=== PATIENT | male | born 1950 | race Caucasian/White ===

== ENCOUNTER 2019-03-26 13:00 | Inpatient (IN) | payer OTHER, MEDICARE ==
[~2019-03-26] VITALS: Ht 162.6 cm; Wt 57.6 kg
[2019-03-26] VITALS (9 sets, daily range): BP systolic 87–132; BP diastolic 47–100
[~2019-03-26 13:00] MED LIST: METH40TA2 PO
--- NOTE | 2019-03-26 13:10 | NUR ---
BIB BROTHER C/O POOR PO INTAKE X4 DAYS, AND BLE EDEMA. PATIENT ASSISTED TO BED, CHANGED INTO GOWN, UNABLE TO OBTAIN HISTORY, BROTHER LEFT. PATIENT A/OX2, BREATHING EVEN AND UNLABORED, NO SOB NOTED. MULTIPLE WOUNDS NOTED, ON LEFT ELBOW AND MARGOTH. HEELS. KEPT PATIENT COMFORTABLE. ATTACHED TO THE PRIVATE DUTY AIDE. WAITING FOR MD NGUYEN.
[2019-03-26] MEDS ORDERED: IV NS 0.9% 1,000 ML BAG IV ONE ×2 (13:30→14:00)
[2019-03-26 13:34] LABS: HEMATOCRIT 34 % (39-51); HEMOGLOBIN 11.5 g/dL (13.5-17.5); MEAN CORPUSCULAR HGB CONC 34 g/dl (31.0-36.0); MEAN CORPUSCULAR VOLUME 80 fL (80-96); RED BLOOD CELL COUNT(AUTO) 4.29 MIL/uL (4.5-6.0); WHITE BLOOD COUNT (AUTO) 21.2 K/uL (4.3-11.0)
[2019-03-26 13:35] LABS: BASOPHILS # (AUTO) 0.1 /CMM (0.0-0.2); BASOPHILS % (AUTO) 0.4 % (0.0-2.0); EOSINOPHILS % (AUTO) 1.7 % (0.0-6.0); LYMPHOCYTES # (AUTO) 0.3 /CMM (0.8-4.8); LYMPHOCYTES % (AUTO) 1.4 % (20.0-44.0); MONOCYTES # (AUTO) 0.3 /CMM (0.1-1.30); MONOCYTES % (AUTO) 1.5 % (2.0-12.0); NEUTROPHILS # (AUTO) 20.1 /CMM (1.8-8.9); PLATELET COUNT (AUTO) 273 /CMM (150-450)
[2019-03-26 13:45] LABS: CALCIUM, SERUM 8.4 mg/dL (8.5-10.1); CARBON DIOXIDE 23 mmol/L (21-32); CHLORIDE 89 mmol/L (98-107); CREATININE 3.7 mg/dL (0.6-1.3); GLUCOSE 117 mg/dL (74-106); POTASSIUM 5.6 mmol/L (3.5-5.1); SODIUM SERUM 125 mmol/L (136-145); UREA NITROGEN, BLOOD 69 mg/dL (7-18)
[2019-03-26] MEDS ORDERED: SODIUM POLYSTYRENE SULFONATE 15 G/60 ML BOTTLE PO ONE (14:00)
[2019-03-26 14:02] LABS: ALANINE AMINOTRANSFERASE 78 U/L (12-78); ALBUMIN 1.9 g/dL (3.4-5.0); ALKALINE PHOSPHATASE 111 U/L (46-116); ASPARTATE AMINOTRANSFERASE 139 U/L (15-37); BILIRUBIN,DIRECT 1.1 mg/dL (0.0-0.2); BILIRUBIN,TOTAL 1.4 mg/dL (0.2-1.0); TOTAL PROTEIN, SERUM 7.1 g/dL (6.4-8.2)
[2019-03-26 14:12] LABS: BILIRUBIN,URINE MODERATE (NEGATIVE); BLOOD, URINE Moderate Ery/uL (NEGATIVE); COLOR,URINE Yellow (YELLOW); KETONES,URINE Negative (NEGATIVE); LEUKOCYTE ESTERASE ,URINE Negative (NEGATIVE); NITRITE, URINE Negative (NEGATIVE); PROTEIN,URINE 100 mg/dl (NEGATIVE); UGLUCOSE 100 MG/DL mg/dL (NEGATIVE)
[2019-03-26 14:13] LABS: APPEARANCE,URINE HAZY (CLEAR)
[2019-03-26 14:15] LABS: BACTERIA,URINE Few /HPF (None Seen); SQUAMOUS EPITHELIAL CELL,UR Rare /HPF (None Seen)
[2019-03-26 14:16] LABS: HYALINE CASTS, URINE Few /LPF (None Seen)
[2019-03-26] MEDS ORDERED: PIPERACILLIN /TAZOBACTAM 3.375 G in IV D5W 50 ML IV ONE (14:30)
--- NOTE | 2019-03-26 14:46 | NUR ---
IV FLUIDS CANCELLED BY STEPHANIE ACEVES, PATIENT RECEIVED TOTAL OF 500ML OF IV FLUID ONLY.
--- NOTE | 2019-03-26 14:58 | NUR ---
ICU BED REQUESTED
--- NOTE | 2019-03-26 15:25 | NUR ---
ICU 255
--- NOTE | 2019-03-26 15:40 | NUR ---
BROTHER AT BEDSIDE, SPEAKING TO MD, UNABLE TO PROVIDE MEDICAL HX FOR THE PATIENT.
--- NOTE | 2019-03-26 15:48 | NUR ---
REPORT GIVEN TO CHELSY SAMANIEGO.
--- NOTE | 2019-03-26 16:32 | NUR ---
PATIENT TRANSFERRED TO ICU VIA ACLS PROTOCOL, PATIENT IN STABLE CONDITION, ON 4LPM VIA NC. NEEDS ATTENDED. ENDORSED TO
--- NOTE | 2019-03-26 16:35 | NUR ---
RN INITIAL NOTES PT ADMITTED FROM ER VIA LENNY. PT AWAKE, A/OX4. NO RESPIRATORY DISTRESS NOTED. NO SOB NOTED. NO SIGNS OF PAIN NOTED. ON 02 VIA IL. PLACED COMFORTABLE TO BED. ORIENTED TO ROOM AND USE OF CALL LIGHT. BODY ASSESSMENT DONE. PICTURES TAKEN AND PLACED INSIDE THE CHART. ALEX WISE NP NOTIFIED OF ADMISSION. AWAITING FOR ADMISSION ORDERS. PT COMFORTABLE. PT FOR BLE VENOUS DOPPLER. CALL LIGHT WITHIN REACH. WILL MONITOR.
[2019-03-26] MEDS ORDERED: MAG HYDROX/AL HYDROX/SIMETH 30 ML UDC PO PRN (18:00)
[2019-03-26] MEDS ORDERED: HYDROCODONE/APAP 5/325MG 1 EACH TABLET PO PRN (18:00)
[2019-03-26] MEDS ORDERED: ACETAMINOPHEN 325 MG TABLET PO PRN (18:00)
[2019-03-26] MEDS ORDERED: MAGNESIUM HYDROXIDE 30 ML UDC PO PRN (18:00)
[2019-03-26] MEDS ORDERED: ONDANSETRON HCL/PF 4 MG/2 ML VIAL IVP PRN (18:00)
[2019-03-26] MEDS ORDERED: Z GUARD REMEDY 2 OZ OINT TP PRN (18:00)
--- NOTE | 2019-03-26 18:56 | NUR ---
rn notes patient responds to voice, follow simple commands. denies pain this time.
[2019-03-26 19:29] LABS: SERUM AMMONIA < 10 umol/L (11-32)
--- NOTE | 2019-03-26 19:32 | NUR ---
rn notes patient no sign of pain. no family call or visit this time. patient remains on sinus rhythm.report given to RN for further care
--- NOTE | 2019-03-26 19:35 | NUR ---
ICU/STRAINER CLEANER ADMITTING MD CAME TO SEE PT, ALSO ASKED WHY NO URINE DRUG AND ALCOHOL LEVEL WASN'T RESULTED. CALLED LAB TO FOLLOW UP ON THIS. NO NEW ORDERERS WERE RECEIVED AT THIS TIME. WILL CONTINUE TO MONITOR THIS PT.
--- NOTE | 2019-03-26 19:45 | NUR ---
ICU/BILINGUAL CALL CENTER REPRESENTATIVE FOLLOWED UP WITH LAB ABOUT URINE TEST. THEY NEEDED A NEW URINE SPECIMEN FOR THE TEST. THIS WAS COLLECTED AND CALLED TO COME PICK THIS UP. WILL CONTINUE TO MONITOR THE RESULTS.
[2019-03-26 20:05] LABS: ALCOHOL, BLOOD < 3 mg/dL (0-0)
[2019-03-26] MEDS: PIPERACILLIN /TAZOBACTAM 2.25 G in IV D5W 50 ML IV SCH (20:38)
--- NOTE | 2019-03-26 22:10 | NUR ---
ICU/SCHOOL CROSSING GUARD URINE TEST RESULTED, NOTHING OUTSTANDING SEEN. NO NEED TO CALL MD WITH RESULTS.
[2019-03-27] VITALS (79 sets, daily range): BP systolic 68–131; BP diastolic 42–76
--- NOTE | 2019-03-27 02:52 | NUR ---
ICU/SEMICONDUCTOR DIES LOADER POSITIVE BLOOD CULTURE WITH GRAM POSITIVE COCCI. THIS WAS NOTED AND CHARGE NURSE AWARE.
[2019-03-27 04:55] LABS: BASOPHILS % (AUTO) 0.1 % (0.0-2.0); EOSINOPHILS % (AUTO) 1.8 % (0.0-6.0); HEMATOCRIT 31 % (39-51); LYMPHOCYTES # (AUTO) 0.2 /CMM (0.8-4.8); LYMPHOCYTES % (AUTO) 1.1 % (20.0-44.0); MEAN CORPUSCULAR HGB CONC 33 g/dl (31.0-36.0); MEAN CORPUSCULAR VOLUME 80 fL (80-96); MONOCYTES # (AUTO) 0.6 /CMM (0.1-1.30); NEUTROPHILS # (AUTO) 18.2 /CMM (1.8-8.9); PLATELET COUNT (AUTO) 232 /CMM (150-450); RED BLOOD CELL COUNT(AUTO) 3.83 MIL/uL (4.5-6.0); WHITE BLOOD COUNT (AUTO) 19.4 K/uL (4.3-11.0)
[2019-03-27 04:59] LABS: ALBUMIN 1.5 g/dL (3.4-5.0); BILIRUBIN,TOTAL 1.1 mg/dL (0.2-1.0); CALCIUM, SERUM 7.7 mg/dL (8.5-10.1); CREATININE 2.9 mg/dL (0.6-1.3); MAGNESIUM 2.6 mg/dL (1.8-2.4); PHOSPHORUS 5.4 mg/dL (2.5-4.9); POTASSIUM 4.3 mmol/L (3.5-5.1); TOTAL PROTEIN, SERUM 5.8 g/dL (6.4-8.2)
[2019-03-27 05:11] LABS: THYROID STIMULATING HORMONE 0.335 uIU/mL (0.358-3.74)
[2019-03-27] MEDS: PIPERACILLIN /TAZOBACTAM 2.25 G in IV D5W 50 ML IV SCH ×3 (05:16→20:34)
[2019-03-27 05:17] LABS: FREE PSA 0.1 ng/mL (0.00-45); PROSTATE SPECIFIC ANTIGEN SCR 0.35 ng/mL (0.00-4.00)
--- NOTE | 2019-03-27 06:33 | NUR ---
ICU/NURSE PRACTITIONER PT'S BLOOD PRESSURE IS IN THE 70'S AND 80'S, CALLED [employer]ER [employer]OE PARTS FOR LEVO. THIS ORDER WAS OBTAINED AND PLACED IN THE COMPUTER. CURRENT BLOOD PRESSURE IS 93/56.
--- NOTE | 2019-03-27 07:19 | NUR ---
ICU/HEAD MECHANIC SATIATION DECREASED DOWN TO 70'S, ABG AND STAT CHEST XRAY ORDERED TO VARIFY IF IT IS TRUE SATURATION. ALSO RESP. THERAPIST AT BEDSIDE TRYING TO TROUBLE SHOT
[2019-03-27 07:32] LABS: ABG BASE EXCESS -2.3 mmol/L; ABG OXYGEN SATURATION 79.3 % (92.0-98.5); ABG PCO2 39.2 mmHg (35.0-45.0); ABG PH 7.379 (7.350-7.450); AaDO2 266.4 mmHg; COHb 0.7 % (0.5-1.5); MetHb 0.1 % (0.0-1.5); O2Hb 78.7 % (94.0-97.0); SITE, ABG Left Radial; VENT MODE, BG VENTURI MASK 50%
--- NOTE | 2019-03-27 07:58 | NUR ---
STABLE CLEANER NOTE RCVD PT LETHARGIC, FOLLOWING SIMPLE COMMANDS, APPEARS VERY DROWSY, SR ON MONITOR, HYPOTENSIVE AT THIS TIME, PT WAS TRANSITIONED FROM VENTURI MASK TO HIGH FLOW O2, GONZALES TO GRAVITY DRAINING CLOUDY, YELLOW URINE. RIGHT FA C/D/I/PATENT, NO S/O INFILTRATION/PHLEBITIS OBSERVED UPON FLUSHING. LEFT AC LEAKING UPON FLUSHING. DR. ARTHUR IN UNIT UPDATED ABOUT PT'S CONDITION AND NEED FOR IVF OR LEVO, NEED FOR PICC LINE INSERTION. ORDERS OBTAINED AND ZACH COLBERTPRINTER REPAIR TECHNICIAN CONTACTED TO CALL PICC LINE RN TO COME INSERT LINE. WILL CONTINUE TO MONITOR PT FOR SAFETY AND COMFORT, BED IN LOW AND LOCKED POSITION, CALL LIGHT WITHIN REACH, HEAD OF BED ELEVATED.
[2019-03-27] MEDS ORDERED: IV NS 0.9% 1,000 ML BAG IV PRN (08:00)
[2019-03-27] MEDS: NOREPINEPHRINE 8 MG in IV D5W 500 ML IV PRN (08:34)
[2019-03-27] MEDS: IV NS 0.9% 1,000 ML IV PRN ×3 (08:35→12:38)
[2019-03-27] MEDS: HEPARIN SODIUM, PORCINE 5000 UNITS/1 ML VIAL SQ SCH ×2 (08:39→20:36)
[2019-03-27] MEDS: HYDROCORTISONE SOD SUCCINATE 100 MG/2 ML VIAL IV SCH ×3 (08:54→17:20)
[2019-03-27 09:53] LABS: ABG BASE EXCESS -1.7 mmol/L; ABG OXYGEN SATURATION 97.7 % (92.0-98.5); ABG PCO2 35.8 mmHg (35.0-45.0); ABG PH 7.416 (7.350-7.450); ABG PO2 166.4 mmHg (75.0-100.0); AaDO2 294.2 mmHg; COHb 0.3 % (0.5-1.5); MetHb 0.3 % (0.0-1.5); O2Hb 97.1 % (94.0-97.0); SITE, ABG Left Radial; VENT MODE, BG HIGH FLOW @ 50L /70% FIO2
--- NOTE | 2019-03-27 10:16 | NUR ---
MANAGER BANQUET NOTE RCVD CALL FROM DR. BARRERA (RADIOLOGIST) REGARDING PT'S CX DONE THIS AM, NEW FINDINGS OF PULMONARY CONTUSION, AND LEFT 6TH RIB FX FOUND. DR. ARTHUR CONTACTED WHO REQUESTED DR. JOHNSON'S OPINION. DR. JOHNSON RECOMMENDED TO HOLD OFF ON CT CHEST AT THE TIME.
[2019-03-27] MEDS: IPRATROPIUM NEB FS 0.5 MG/2.5 ML AMPUL.NEB NEB SCH ×4 (11:59→23:24)
[2019-03-27 12:07] LABS: APPEARANCE,URINE CLOUDY (CLEAR); BILIRUBIN,URINE NEGATIVE (NEGATIVE); BLOOD, URINE 2+ Ery/uL (NEGATIVE); COLOR,URINE YELLOW (YELLOW); KETONES,URINE NEGATIVE (NEGATIVE); LEUKOCYTE ESTERASE ,URINE NEGATIVE (NEGATIVE); NITRITE, URINE NEGATIVE (NEGATIVE); PH,URINE 5.5 (5.0-8.0); PROTEIN,URINE 1+ mg/dl (NEGATIVE); UGLUCOSE NEGATIVE (NEGATIVE)
[2019-03-27 12:41] LABS: BACTERIA,URINE None seen /HPF (None Seen); EOSINOPHIL,URINE None Seen; MUCUS,URINE Few /LPF (None Seen); SQUAMOUS EPITHELIAL CELL,UR Rare /HPF (None Seen); URINE AMORPHOUS URATE Many /HPF (None Seen)
[2019-03-27 12:57] LABS: CREATININE, URINE 72.3 MG/DL (30.0-125.0); URINE TOTAL PROTEIN 117.9 mg/dL (0-11.9)
[2019-03-27] MEDS: FLUDROCORTISONE 0.1 MG TABLET PO SCH ×2 (13:11→17:20)
--- NOTE | 2019-03-27 18:21 | NUR ---
HALF SECTION IRONER NOTE PT STABILIZED, REMAINS SR O2 TITRATED DOWN TO LOW FLOW NASAL CANNULA 4L, PT APPEARS MORE AWAKE AND ALERT, NO S/O DISTRESS OBSERVED, GONZALES TO GRAVITY DRAINING CLOUDY, YELLOW COLORED URINE. PAMELA MIDLINE C/D/I/PATENT, NO S/O INFILTRATION/PHLEBITIS OBSERVED UPON FLUSHING. BED IN LOW AND LOCKED POSITION, CALL LIGHT WITHIN REACH, HEAD OF BED ELEVATED. REFUSING MEALS, TAKING LIQUIDS ONLY. PT PROVIDED METHADONE CLINIC INFORMATION WHICH WAS COMMUNICATED TO PHARMACIST TO CONFIRM PT'S METHADONE DOSE AND FREQUENCY.
--- NOTE | 2019-03-27 19:30 | NUR ---
SCREEN MAKER INITIAL SHIFT NOTES RECEIVED PATIENT IN BED, AWAKE, ALERT AND ORIENTED X2, ABLE TO VERBALIZE NEEDS. BREATHING EVEN AND NONLABORED, TOLERATING O2 VIA NC @ 4LPM, TOLERATING WELL, SPO2 WNL. PATIENT SINUS RHYTHM ON BEDSIDE INTERNATIONAL COORDINATOR, HR = 63 BPM AT THIS TIME. GONZALES CATHETER PATENT AND INTACT, DRAINING CLOUDY YELLOW URINE WITH SEDIMENTS VIA GRAVITY. PAMELA TRIPLE LUMEN MIDLINE PATENT AND INTACT, ALL PORTS FLUSHED WITH SALINE, WITH GOOD VENOUS RETURN NOTED. SITE FREE FROM ANY S/S OF INFILTRATION OR PHLEBITIS. ONGOING LEVOPHED GTT, CURRENTLY @ 4MCG/MIN. CALL LIGHT LEFT WITHIN EASY REACH, BED IN LOWEST AND LOCKED POSITION. WILL CONTINUE TO CLOSELY MONITOR
[2019-03-28] VITALS (98 sets, daily range): BP systolic 80–141; BP diastolic 40–88
[2019-03-28] MEDS: FLUDROCORTISONE 0.1 MG TABLET PO SCH ×2 (00:43→05:21)
[2019-03-28] MEDS: IPRATROPIUM NEB FS 0.5 MG/2.5 ML AMPUL.NEB NEB SCH ×6 (03:03→23:04)
--- NOTE | 2019-03-28 03:16 | NUR ---
CONTRACTOR FIELD HAULING NOTES PATIENT OXYGEN TITRATED FROM 4L TO 2L VIA NC PER RT. SPO2 97-98%. NO SOB AND ACUTE DISTRESS NOTED. WILL CONT TO MONITOR.
[2019-03-28 05:02] LABS: BASOPHILS # (AUTO) 0.1 /CMM (0.0-0.2); BASOPHILS % (AUTO) 0.3 % (0.0-2.0); EOSINOPHILS % (AUTO) 0.6 % (0.0-6.0); HEMATOCRIT 29 % (39-51); HEMOGLOBIN 9.7 g/dL (13.5-17.5); LYMPHOCYTES # (AUTO) 0.3 /CMM (0.8-4.8); LYMPHOCYTES % (AUTO) 1.3 % (20.0-44.0); MEAN CORPUSCULAR HGB CONC 34 g/dl (31.0-36.0); MEAN CORPUSCULAR VOLUME 80 fL (80-96); MONOCYTES # (AUTO) 2.9 /CMM (0.1-1.30); MONOCYTES % (AUTO) 11.6 % (2.0-12.0); NEUTROPHILS # (AUTO) 21.4 /CMM (1.8-8.9); NEUTROPHILS % (AUTO) 86.2 % (43.0-81.0); PLATELET COUNT (AUTO) 231 /CMM (150-450); RED BLOOD CELL COUNT(AUTO) 3.58 MIL/uL (4.5-6.0); WHITE BLOOD COUNT (AUTO) 24.8 K/uL (4.3-11.0)
[2019-03-28 05:19] LABS: BILIRUBIN,TOTAL 0.7 mg/dL (0.2-1.0); CALCIUM, SERUM 7.3 mg/dL (8.5-10.1); CREATININE 2.2 mg/dL (0.6-1.3); MAGNESIUM 2.6 mg/dL (1.8-2.4); PHOSPHORUS 4.7 mg/dL (2.5-4.9); POTASSIUM 3.6 mmol/L (3.5-5.1); TOTAL PROTEIN, SERUM 5.8 g/dL (6.4-8.2)
[2019-03-28] MEDS: PIPERACILLIN /TAZOBACTAM 2.25 G in IV D5W 50 ML IV SCH ×3 (05:20→20:55)
[2019-03-28 05:30] LABS: ALBUMIN 1.3 g/dL (3.4-5.0)
[2019-03-28] MEDS: IV NS 0.9% 1,000 ML IV PRN ×2 (07:15→17:59)
[2019-03-28] MEDS: NOREPINEPHRINE 8 MG in IV D5W 500 ML IV PRN ×2 (07:16→18:31)
--- NOTE | 2019-03-28 07:22 | NUR ---
PROP ATTENDANT CLOSING NOTES PATIENT IN BED, SLEEPING, BUT EASY TO AROUSE. ALERT AND ORIENTED X2, ABLE TO VERBALIZE NEEDS. ON OXYGEN VIA NC AT 2LPM, TOLERATING WELL, SPO2 WNL. BREATHING EVEN AND NONLABORED. PATIENT SINUS RHYTHM ON BEDSIDE ARTIFICIAL FLOWERS SUPERVISOR, HR = 62 BPM AT THIS TIME. GONZALES CATHETER PATENT AND INTACT, DRAINING CLOUDY YELLOW URINE WITH SEDIMENTS VIA GRAVITY. PAMELA TRIPLE LUMEN MIDLINE PATENT AND INTACT, ALL PORTS FLUSHING AND PATENT WITH NS, WITH GOOD VENOUS RETURN NOTED, NO S/S OF INFILTRATION OR PHLEBITIS. ONGOING LEVOPHED GTT, CURRENTLY AT 4MCG/MIN. TURNED AND REPOSITIONED Q2H. NO ACUTE CHANGES THROUGHOUT SHIFT. SAFETY MEASURES MAINTAINED; CALL LIGHT LEFT WITHIN EASY REACH, BED LOCKED AND IN LOW POSITION. ENDORSED TO AM RN FOR CASSIE.
--- NOTE | 2019-03-28 08:10 | NUR ---
INITIAL MANUFACTURING LEADER NOTE RCVD PT AWAKE AND ALERT TO SELF, SR ON MONITOR, TOLERATING O2 VIA NASAL CANNULA, GONZALES TO GRAVITY DRAINING CLOUDY, YELLOW URINE. PAMELA MIDLINE C/D/I/PATENT, IVF INFUSING ORDERED, LEVO TITRATED ORDERED. WILL CONTINUE TO MONITOR PT FOR SAFETY AND COMFORT, BED IN LOW AND LOCKED POSITION, CALL LIGHT WITHIN REACH, HEAD OF BED ELEVATED. WOUND CONSULT RE-ORDERED, DIETARY CONSULT DUE TO PT'S POOR APPETITE.
[2019-03-28] MEDS: HEPARIN SODIUM, PORCINE 5000 UNITS/1 ML VIAL SQ SCH ×2 (09:53→20:56)
[2019-03-28] MEDS: METHADONE HCL 10 MG TABLET PO SCH (10:30)
[2019-03-28 11:29] LABS: ABG BASE EXCESS -1.7 mmol/L; ABG OXYGEN SATURATION 92.9 % (92.0-98.5); ABG PCO2 35.4 mmHg (35.0-45.0); ABG PH 7.418 (7.350-7.450); ABG PO2 70.5 mmHg (75.0-100.0); AaDO2 87.4 mmHg; COHb 0.5 % (0.5-1.5); O2Hb 92.4 % (94.0-97.0); SITE, ABG Left Radial; VENT MODE, BG 2L NC
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
--- NOTE | 2019-03-28 12:09 | NUR ---
WOUND CARE CONSULT: PT PRESENTS WITH MULTIPLE SKIN ISSUES INCLUDING INTACT DEEP TISSUE INJURIES TO RT HEEL AND TO SACRUM, EXTENDING TO BUTTOCKS, LEFT ARM SKIN TEARS, RT ARM DRY ABRASIONS, LOWER EXTREMITY DRY WOUNDS, RT LOWER LEG REDNESS WITH EDEMA AND LEFT HIP LARGE AREA OF DISCOLORATION,ALL PRESENT ON ADMISSION. DR CERVANTES NOTIFIED OF DPM CONSULT REQUEST AND EXAMINED PT. RECOMMENDATIONS MADE FOR WOUND CARE AND SKIN PROTECTION. DISCUSSED WITH NURSING STAFF. WILL SEE PRN. [facility]. Addendum: 03/28/19 at 1213 by IHSAN YORK WNDNU Amended: Links added.
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
[2019-03-28] MEDS ORDERED: NEPRO VAN 237 ML CAN PO PRN (17:30)
--- NOTE | 2019-03-28 19:02 | NUR ---
DINING ROOM SUPERVISOR NOTE PT REMAINS ALERT, WITH PERIODS OF CONFUSION, SR/SB ON MONITOR, TOLERATING O2 VIA NASAL CANNULA, GONZALES TO GRAVITY DRAINING CLOUDY, YELLOW URINE. MULTIPLE SKIN PROBLEMS, PAMELA MIDLINE C/D/I/PATENT, LEVO TITRATED ORDERED. CONTINUES TO HAVE POOR APPETITE DESPITE ENCOURAGEMENT. PT'S CARE WILL BE ENDORSED TO ADEN BIRCH FOR FIRE WATCHER FOR CONTINUITY OF CARE, BED IN LOW AND LOCKED POSITION. HEAD OF BED ELEVATED.
--- NOTE | 2019-03-28 20:00 | NUR ---
INITIAL RN NOTE RECEIVED PT AWAKE AND ALERT X1, SR ON MONITOR, TOLERATING O2 VIA NASAL CANNULA, GONZALES TO GRAVITY DRAINING CLOUDY, YELLOW URINE. PAMELA MIDLINE C/D/I/PATENT, IVF INFUSING ORDERED, LEVO TITRATED ORDERED. WILL CONTINUE TO MONITOR PT FOR SAFETY AND COMFORT, BED IN LOW AND LOCKED POSITION, CALL LIGHT WITHIN REACH, HEAD OF BED ELEVATED.
--- NOTE | 2019-03-28 22:15 | NUR ---
RN NOTES ACCOMPANYING PT TO CT SCAN, PROTOCOL OBSERVED.
--- NOTE | 2019-03-28 22:45 | NUR ---
RN NOTES PT RETURNED FROM CT. PT IN STABLE CONDITION. WILL CONT TO MONITOR.
[2019-03-29] VITALS (59 sets, daily range): BP systolic 92–150; BP diastolic 50–94
[2019-03-29] MEDS: IPRATROPIUM NEB FS 0.5 MG/2.5 ML AMPUL.NEB NEB SCH ×6 (03:33→23:08)
[2019-03-29] MEDS: IV NS 0.9% 1,000 ML IV PRN (04:37)
[2019-03-29] MEDS: PIPERACILLIN /TAZOBACTAM 2.25 G in IV D5W 50 ML IV SCH ×2 (04:37→13:43)
[2019-03-29 05:04] LABS: BASOPHILS # (AUTO) 0.1 /CMM (0.0-0.2); BASOPHILS % (AUTO) 0.2 % (0.0-2.0); EOSINOPHILS % (AUTO) 0.4 % (0.0-6.0); HEMATOCRIT 29 % (39-51); HEMOGLOBIN 9.5 g/dL (13.5-17.5); LYMPHOCYTES # (AUTO) 0.8 /CMM (0.8-4.8); LYMPHOCYTES % (AUTO) 3.1 % (20.0-44.0); MEAN CORPUSCULAR HGB CONC 33 g/dl (31.0-36.0); MEAN CORPUSCULAR VOLUME 80 fL (80-96); MONOCYTES # (AUTO) 2.5 /CMM (0.1-1.30); MONOCYTES % (AUTO) 10.2 % (2.0-12.0); NEUTROPHILS # (AUTO) 21.2 /CMM (1.8-8.9); NEUTROPHILS % (AUTO) 86.1 % (43.0-81.0); PLATELET COUNT (AUTO) 224 /CMM (150-450); RED BLOOD CELL COUNT(AUTO) 3.62 MIL/uL (4.5-6.0); WHITE BLOOD COUNT (AUTO) 24.7 K/uL (4.3-11.0)
[2019-03-29 05:19] LABS: BILIRUBIN,TOTAL 0.4 mg/dL (0.2-1.0); CALCIUM, SERUM 7.4 mg/dL (8.5-10.1); CREATININE 1.5 mg/dL (0.6-1.3); MAGNESIUM 2.5 mg/dL (1.8-2.4); PHOSPHORUS 2.9 mg/dL (2.5-4.9); POTASSIUM 2.9 mmol/L (3.5-5.1); TOTAL PROTEIN, SERUM 5.7 g/dL (6.4-8.2)
[2019-03-29 05:29] LABS: IRON, SERUM 8 ug/dl (50-175); TOTAL IRON BINDING CAPACITY 91 ug/dl (250-450)
[2019-03-29 05:40] LABS: ALBUMIN 1.2 g/dL (3.4-5.0)
[2019-03-29 05:41] LABS: FERRITIN 589 ng/mL (8-388)
[2019-03-29 06:17] LABS: LYMPHOCYTES % (MANUAL) 4 % (16-48); MONOCYTES % (MANUAL) 11 % (0-11.0); NEUTROPHILS % (MANUAL) 85 (42-76)
--- NOTE | 2019-03-29 06:22 | NUR ---
RN CLOSING NOTE PT REMAINED TOLERATING O2 VIA NASAL CANNULA, GONZALES TO GRAVITY DRAINING CLOUDY, YELLOW URINE. PAMELA MIDLINE C/D/I/PATENT, LEVO TITRATED ORDERED AND 0.9NS ORDERED. ALL SAFETY PRECAUTIONS TAKEN. WILL ENDORSE TO AM RN FOR CASSIE
--- NOTE | 2019-03-29 07:30 | NUR ---
RN NOTE: RECEIVED PATIENT IN BED, ASLEEP, BUT AROUSABLE WITH VERBAL CUES AND TACTILE STIMULI. ABLE TO MAKE HIS NEEDS KNOWN AND REDIRECTABLE EVERY TIME PATIENT WOULD REMOVE THE NASAL CANNULA. RESPIRATION EVEN AND UNLABORED WITH O2 2L/MIN VIA NC SATURATING 96%. DENIED ANY PAIN OR DISCOMFORT AT THIS TIME. HOB ELEVATED AT 35 DEGREE. (R) UA PICC LINE TRIPLE LUMEN WAS NOTED IN PLACED INFUSING LEVOPHED @4MCG/MIN AND NOTED SINUS BRADYCARDIA HR= 54. AFEBRILE. SKIN WARM TO TOUCH. GONZALES CATHETER IN PLACED WITH YELLOW CLOUDY URINE DRAINING TO GRAVITY. BED ALARMED AND LOCKED AT ALL TIMES. CALL LIGHT WITHIN REACH. NEEDS ANTICIPATED. PATIENT ATE 1 SPOON OF HIS CEREAL THIS MORNING. ENCOURAGED PATIENT TO EAT, BUT HE STRONGLY REFUSED. WILL MONITOR THE PATIENT'S BP AND HR AND HIS PO INTAKE WITHIN THE DAY.
[2019-03-29] MEDS: ENSURE ENLIVE CHOC 237 ML CAN PO SCH ×2 (08:00→12:00)
[2019-03-29] MEDS: POTASSIUM CHLORIDE 20 MEQ TAB.PRT.SR PO SCH ×5 (08:25→12:00)
[2019-03-29] MEDS: METHADONE HCL 10 MG TABLET PO SCH (08:26)
[2019-03-29] MEDS: HEPARIN SODIUM, PORCINE 5000 UNITS/1 ML VIAL SQ SCH ×2 (08:29→20:51)
[2019-03-29] MEDS: Potassium Chloride 40 MEQ in IV NS 0.9% 1,000 ML IV PRN ×2 (10:56→23:42)
[2019-03-29 13:06] LABS: PTH, INTACT 67 pg/mL (15-65)
[2019-03-29] MEDS ORDERED: POTASSIUM CHLORIDE 20 MEQ TAB.PRT.SR PO ONE (13:30)
--- NOTE | 2019-03-29 14:10 | NUR ---
RN NOTE CORRECTION: NUTRITIONAL SUPPLEMENT WAS ENSURE AND NOT GLUCERNA.
--- NOTE | 2019-03-29 14:10 | NUR ---
RN NOTE: CALLED AND PAGED Lazara WISE DNP REGARDING THE PATIENT'S POOR PO INTAKE WITHIN THE BREAKFAST AND LUNCH MEAL. HE WAS AWARE OF THE NUTRITIONAL SUPPLEMENT OF GLUCERNA SHAKE WITH MEALS, BUT THE PATIENT WAS REFUSING IT SINCE BREAKFAST. AND THE PATIENT WAS ON RENAL DIET. FRANCOISE WISE WAS INFORMED THAT PATIENT HAS BEEN TAKING HIS PO MEDICATIONS WELL. PER Lazara WISE DNP HE ORDERED REMERON 15MG PO QHS FOR APPETITE STIMULANT TO BE STARTED TONIGHT. ORDER NOTED AND CARRIED OUT.
[2019-03-29] MEDS: SOD FERRIC GLUC 125 MG in IV NS 0.9% 100 ML IV SCH (15:00)
--- NOTE | 2019-03-29 16:00 | NUR ---
RN NOTE: CALLED AND SPOKE WITH Keyona CHEN CM REGARDING THE PLAN OF TRANSFERRING THE PATIENT TO A [facility] ONCE PATIENT HAS BEEN OFF THE PRESSOR. PER FERMIN, SHE WILL CLARIFY WITH Lazara WISE DNP REGARDING THIS PLAN OF TRANSFER.
--- NOTE | 2019-03-29 17:08 | NUR ---
RN NOTE CORRECTION: NUTRITIONAL SUPPLEMENT WAS ENSURE AND NOT GLUCERNA.
--- NOTE | 2019-03-29 17:08 | NUR ---
RN NOTE: CLARIFIED WITH Lazara WISE DNP REGARDING THE PATIENT'S NUTRITIONAL SUPPLEMENT. Lazara WISE DNP WAS INFORMED THAT THE DIETITIAN WAS CONSULTED AND CLARIFIED WITH HER REGARDING THE ORDERED GLUCERNA SHAKE TID WITH MEALS. PER ALEX WISE DNP OK WITH NEPHRO BID WITH MEALS. ORDER NOTED AND CARRIED OUT. PATIENT WAS MADE AWARE.
[2019-03-29] MEDS ORDERED: NEPRO VAN 237 ML CAN PO PRN (17:30)
--- NOTE | 2019-03-29 18:00 | NUR ---
RN NOTE: CALLED AND SPOKE WITH Keyona CHEN CM REGARDING THE PLAN OF TRANSFERRING THE PATIENT TO A [facility] AND PER CM SHE SPOKE WITH Lazara WISE DNP AND HE WANTED THE PATIENT TO BE KEPT IN ICU FOR 24 HOURS OFF THE LEVOPHED PRIOR TO THE HOSPITAL TRANSFER.
[2019-03-29] MEDS: CEFTRIAXONE 1 G in IV D5W 50 ML IV SCH (18:01)
--- NOTE | 2019-03-29 19:14 | NUR ---
RN NOTE: BEDSIDE REPORT WAS GIVEN TO PM SHIFT NURSE FOR CONTINUITY OF CARE. PATIENT REMAINED AWAKE, ALERT AND VERBALLY RESPONSIVE. REPORTED TO PM SHIFT NURSE THAT PATIENT DID NOT EAT THE WHOLE DAY AND Lazara WISE DNP WAS MADE AWARE. NO BOWEL MOVEMENT WITHIN THE DAY.
[2019-03-29] MEDS: DOXYCYCLINE HYCLATE (100 MG) 100 MG TABLET PO SCH (20:48)
[2019-03-29] MEDS: MIRTAZAPINE 15 MG TABLET PO SCH (21:49)
[2019-03-30] VITALS (23 sets, daily range): BP systolic 121–160; BP diastolic 65–110
[2019-03-30] MEDS: IPRATROPIUM NEB FS 0.5 MG/2.5 ML AMPUL.NEB NEB SCH ×6 (03:30→23:45)
[2019-03-30 04:52] LABS: BASOPHILS % (AUTO) 0.1 % (0.0-2.0); EOSINOPHILS % (AUTO) 0.4 % (0.0-6.0); HEMATOCRIT 30 % (39-51); HEMOGLOBIN 9.9 g/dL (13.5-17.5); LYMPHOCYTES # (AUTO) 0.8 /CMM (0.8-4.8); LYMPHOCYTES % (AUTO) 5.2 % (20.0-44.0); MEAN CORPUSCULAR HGB CONC 33 g/dl (31.0-36.0); MEAN CORPUSCULAR VOLUME 81 fL (80-96); MONOCYTES # (AUTO) 0.6 /CMM (0.1-1.30); MONOCYTES % (AUTO) 4.2 % (2.0-12.0); NEUTROPHILS # (AUTO) 13.9 /CMM (1.8-8.9); NEUTROPHILS % (AUTO) 90.1 % (43.0-81.0); PLATELET COUNT (AUTO) 239 /CMM (150-450); RED BLOOD CELL COUNT(AUTO) 3.76 MIL/uL (4.5-6.0); WHITE BLOOD COUNT (AUTO) 15.5 K/uL (4.3-11.0)
[2019-03-30 04:58] LABS: BILIRUBIN,TOTAL 0.5 mg/dL (0.2-1.0); CALCIUM, SERUM 7.6 mg/dL (8.5-10.1); MAGNESIUM 2.2 mg/dL (1.8-2.4); POTASSIUM 4.6 mmol/L (3.5-5.1)
[2019-03-30 05:22] LABS: ALBUMIN 1.2 g/dL (3.4-5.0)
[2019-03-30 06:14] LABS: LYMPHOCYTES % (MANUAL) 3 % (16-48); MONOCYTES % (MANUAL) 3 % (0-11.0); NEUTROPHILS % (MANUAL) 93 (42-76); REACTIVE LYMPHOCYTES 1 % (0-0)
--- NOTE | 2019-03-30 06:18 | NUR ---
RN NOTES IN BED, AWAKE WATCHING TV. IN NO APPARENT DISTRESS, BREATHING EVEN AND UNLABORED. NO COMPLAINT OF PAIN OR DISCOMFORT. ON 2L O2 VIA NASAL CANNULA WELL TOLERATED. VITAL SIGNS WNL. GONZALES CATHETER PATENT AND IN PLACE DRAINING CLEAR YELLOW WITH FOUL ODOR URINE. ALERT AND ORIENTED X 2-3. ABLE TO VERBALLY COMMUNICATE NEEDS. KEPT CLEAN AND DRY. WILL ENDORSE TO NEXT SHIFT FOR CONTINUITY OF CARE.
--- NOTE | 2019-03-30 07:15 | NUR ---
RN INITIAL NOTES RECEIVED PT AWAKE, A/OX3-4. ON 02 VIA NC. NO RESPIRATORY DISTRESS NOTED. NO SOB NOTED. DENIES ANY PAIN. PAMELA PICC IN PLACE. IVF INFUSING. FC IN PLACE. NO HEMATURIA NOTED. PT COMFORTABLE. CALL LIGHT WITHIN REACH. WILL MONITOR
[2019-03-30] MEDS: METHADONE HCL 10 MG TABLET PO SCH (08:08)
[2019-03-30] MEDS: DOXYCYCLINE HYCLATE (100 MG) 100 MG TABLET PO SCH ×2 (08:08→20:45)
[2019-03-30] MEDS: HEPARIN SODIUM, PORCINE 5000 UNITS/1 ML VIAL SQ SCH ×2 (08:09→20:50)
[2019-03-30] MEDS: Potassium Chloride 40 MEQ in IV NS 0.9% 1,000 ML IV PRN (12:00)
[2019-03-30] MEDS ORDERED: K PHOS NEUTRAL 250 MG TABLET PO ONE (12:00)
--- NOTE | 2019-03-30 12:30 | NUR ---
RN NOTES SEEN AND EXAMINED BY ALEX WISE NP. PT MORE AWAKE, A/OX3-4. NO SOB NOTED. DENIES ANY PAIN. ON IVF. WILL CONTINUE TO MONITOR
[2019-03-30] MEDS: SOD FERRIC GLUC 125 MG in IV NS 0.9% 100 ML IV SCH (14:46)
[2019-03-30] MEDS: CEFTRIAXONE 1 G in IV D5W 50 ML IV SCH (17:04)
--- NOTE | 2019-03-30 18:37 | NUR ---
RN CLOSING NOTES NO SIGNIFICANT CHANGE NOTED. REMAINS ON 02 VIA OR. NO RESPIRATORY DISTRESS NOTED. DENIES ANY PAIN. TX PROVIDED ORDERED. KEPT COMFORTABLE. ALL NEEDS ATTENDED AND MET. CALL LIGHT WITHIN REACH. WILL ENDORSE FOR CONTINUITY OF CARE.
--- NOTE | 2019-03-30 19:57 | NUR ---
LAND LEASE INFORMATION CLERK OPENING NOTES RECEIVED REPORT FROM SETH SAMANIEGO. PATIENT A/A/O X2-3, ABLE TO VERBALIZE NEEDS & ANSWER SIMPLE QUESTIONS. BREATHING EVEN & UNLABORED, TOLERATING O2 @ 2LPM VIA NC. DENIES ANY SOB OR DIFFICULTY BREATHING. ON TELE W/ SINUS RHYTHM. RIGHT UPPER ARM PICC LINE INTACT & PATENT W/ DRESSING CDI & IVF NS W/ 40 MEQ KCL INFUSING WELL @ 80 ML/HR. GONZALES CATH DRAINING YELLOW URINE W/ SOME SEDIMENTS NOTED. DENIES ANY PAIN OR DISCOMFORT @ THIS TIME. SAFETY MEASURES IN PLACE W/ SIDE RAILS UP & BED ALARM ON. TURNED & REPOSITIONED FOR COMFORT. WILL CONTINUE TO MONITOR CLOSELY.
--- NOTE | 2019-03-30 21:06 | NUR ---
REFRIGERATION PLANT OPERATOR NOTE RECEIVED ARRIVED TO FLOOR VIA GURNEY ACCOMPANIED BY ICU PERSONNEL. PT IN STABLE CONDITION, A/O X1-2. CURRENTLY WATCHING TV, ON 02 NC, TOLERATING WELL. NO SIGNS OF SOB OR ACUTE DISTRESS. NO C/O PAIN. PAMELA PICC IN PLACE WITH IVF INFUSING. GONZALES PATENT INTACT WITH ADEQUATE URINE DRAINING.TELE MONITOR: SR 72. ALL CURRENT NEEDS ATTENDED TO. BED LOW, LOCKED, UPPER RAILS UP, AND CALL LIGHT WITHIN REACH. WILL CONT. TO MONITOR
--- NOTE | 2019-03-30 21:14 | NUR ---
RANGE ECOLOGIST NOTES PATIENT TRANSFERRED @ 2100 TO 3RD FLOOR MED SURG TO ROOM 322-1 VIA ACLS PROTOCOL. BEDSIDE REPORT GIVEN TO OSMANI SAMANIEGO. PER ICU CHARGE NURSE ED, SKIN ASSESSMENT PICTURES TO BE ENDORSED TO NEXT RN.
[2019-03-30] MEDS: MIRTAZAPINE 15 MG TABLET PO SCH (22:15)
[2019-03-31] VITALS (7 sets, daily range): BP systolic 107–170; BP diastolic 68–84
[2019-03-31] MEDS: Potassium Chloride 40 MEQ in IV NS 0.9% 1,000 ML IV PRN (02:03)
[2019-03-31] MEDS: IPRATROPIUM NEB FS 0.5 MG/2.5 ML AMPUL.NEB NEB SCH ×6 (03:46→23:30)
[2019-03-31 06:24] LABS: BILIRUBIN,TOTAL 0.5 mg/dL (0.2-1.0); CALCIUM, SERUM 6.9 mg/dL (8.5-10.1); CREATININE 0.7 mg/dL (0.6-1.3); MAGNESIUM 1.7 mg/dL (1.8-2.4); PHOSPHORUS 2.3 mg/dL (2.5-4.9); TOTAL PROTEIN, SERUM 5.5 g/dL (6.4-8.2)
[2019-03-31 06:26] LABS: BASOPHILS % (AUTO) 0.1 % (0.0-2.0); EOSINOPHILS % (AUTO) 0.8 % (0.0-6.0); HEMATOCRIT 27 % (39-51); HEMOGLOBIN 8.9 g/dL (13.5-17.5); LYMPHOCYTES # (AUTO) 0.9 /CMM (0.8-4.8); LYMPHOCYTES % (AUTO) 8.2 % (20.0-44.0); MEAN CORPUSCULAR HGB CONC 33 g/dl (31.0-36.0); MEAN CORPUSCULAR VOLUME 81 fL (80-96); MONOCYTES # (AUTO) 0.6 /CMM (0.1-1.30); NEUTROPHILS # (AUTO) 9.6 /CMM (1.8-8.9); NEUTROPHILS % (AUTO) 85.9 % (43.0-81.0); PLATELET COUNT (AUTO) 218 /CMM (150-450); RED BLOOD CELL COUNT(AUTO) 3.36 MIL/uL (4.5-6.0); WHITE BLOOD COUNT (AUTO) 11.2 K/uL (4.3-11.0)
--- NOTE | 2019-03-31 06:27 | NUR ---
PAD EXTRACTOR TENDER NOTE PT IN STABLE CONDITION, A/O X1-2. CURRENTLY WATCHING TV, ON 02 NC, TOLERATING WELL. NO SIGNS OF SOB OR ACUTE DISTRESS. NO C/O PAIN. PAMELA PICC IN PLACE WITH IVF INFUSING. GONZALES PATENT INTACT WITH ADEQUATE URINE DRAINING.TELE MONITOR: SR 79. ALL CURRENT NEEDS ATTENDED TO. BED LOW, LOCKED, UPPER RAILS UP, AND CALL LIGHT WITHIN REACH, PT REPOSITIONED PER UNIT PROTOCOL. WILL CONT. TO MONITOR AND ENDORSE TO NEXT SHIFT FOR CASSIE.
[2019-03-31 06:38] LABS: POTASSIUM 8.1 mmol/L (3.5-5.1)
--- NOTE | 2019-03-31 06:46 | NUR ---
MANAGER CARDIAC CATH NOTE PT NOTED WITH LABS POTASSIUM 8.1 AND ALBUMIN 1.0, KERZUFABIANA MESSAGED. AWAITING CALL BACK. WILL ENDORSE TO NEXT SHIFT FOR CASSIE.
--- NOTE | 2019-03-31 07:29 | NUR ---
PASSENGER REPRESENTATIVE OPENING NOTES RECEIVED PT AWAKE IN BED IN NO ACUTE SIGNS OF DISTRESS. HOB ELEVATED. A/O X2-3. ABLE TO VERBALIZE NEEDS, DENIES PAIN OR ANY DISCOMFORTS AT THIS TIME. ON ROOM AIR AT THIS TIME, BREATHING EVEN & UNLABORED. ON TELE MONITORING WITH CURRENT READING OF SINUS RHYTHM WITH HR ON 80'S, NO C/O CARDIAC DISTRESS VOICED. PAMELA PICC LINE INTACT & PATENT W/ DRESSING CDI & IVF NS W/ 40 MEQ KCL HELD AT THIS TIME DUE TO ELEVATED POTASSIUM LEVEL THIS MORNING. GONZALES CATH IN PLACE AND DRAINING YELLOW URINE W/ SOME SEDIMENTS NOTED. SAFETY MEASURES IN PLACE. BED IN LOW LOCKED POSITION W/ SIDE RAILS UP X2. CALL LIGHT WITHIN REACH. WILL CONTINUE TO MONITOR PT ACCORDINGLY.
[2019-03-31 08:10] LABS: *SPE A/G RATIO 0.5 (0.7-1.7); *SPE ALBUMIN 1.6 g/dL (2.9-4.4); *SPE ALPHA-1-GLOBULIN 0.5 g/dL (0.0-0.4); *SPE ALPHA-2-GLOBULIN 1.2 g/dL (0.4-1.0); *SPE BETA GLOBULIN 0.9 g/dL (0.7-1.3); *SPE GLOBULIN, TOTAL 3.3 g/dL (2.2-3.9); *SPE M-SPIKE Not Observed g/dL (Not Observed); *SPEGAMMA GLOBULIN 0.8 g/dL (0.4-1.8)
[2019-03-31] MEDS: IV D5/ 0.9% NACL 1,000 ML IV PRN (08:16)
[2019-03-31] MEDS ORDERED: SODIUM POLYSTYRENE SULFONATE 15 G/60 ML BOTTLE PO ONE (08:30)
[2019-03-31] MEDS ORDERED: Calcium Gluconate 1GM/10ML 4.65 MEQ in IV D5W 50 ML IV ONE (08:30)
[2019-03-31] MEDS ORDERED: INSULIN REGULAR, HUMAN 100 UNIT/ML 10 ML VIAL IV ONE (08:30)
[2019-03-31] MEDS ORDERED: DEXTROSE 50%-WATER 50 ML DISP.SYRIN IVP ONE (08:30)
--- NOTE | 2019-03-31 09:04 | NUR ---
RN NOTES PATIENT WITH HIGH LEVEL POTASSIUM 8.1 THIS MORNING, DR WISE MADE AWARE AND CAME TO UNIT TO ASSESSED PT. HE MADE ORDERS TO GIVE KAYEXALATE 30MG/120ML PO, D50% 50ML IVP, D5NS @ 100ML/HR, CALCIUM GLUCONATE 1GM/10ML 4.65MEQ IN 50ML D5W AND REGULAR INSULIN 10U. ALL ORDERS CARRIED OUT. WILL CONTINUE TO MONITOR.
[2019-03-31] MEDS: DOXYCYCLINE HYCLATE (100 MG) 100 MG TABLET PO SCH ×2 (09:07→22:00)
--- NOTE | 2019-03-31 09:16 | NUR ---
RN NOTES PT SEEN AND EVALUATED BY DR JORGE WITH ORDER TO TRANSFER PT TO ICU.
--- NOTE | 2019-03-31 09:27 | NUR ---
RN NOTES PT TRANSFERRED TO ICU RM 256 VIA HIS BED PER ACLS PROTOCOL. PT A/O X2-3 AND IN NO ACUTE SIGNS OF DISTRESS. BEDSIDE REPORT GIVEN TO ICU NURSE IBIS.
--- NOTE | 2019-03-31 09:45 | NUR ---
SENIOR VICE PRESIDENT AND CHIEF INFORMATION OFFICER NOTES RECEIVED PATIENT FROM MS. A/O X2 VERY DROWSY ABLE TO AROUSE WITH VOICE AND TOUCH.SINUS TACHY ON MONITOR. NO SIGNS OR SYMPTOMS OF RESPIRATORY DISTRESS OR ACUTE PAIN NOTED. SATURATING WELL ON 2 LTRS NASAL CANNULA. IVF RUNNING D5NS @ 100 ML/HR TO [facility] PICC . RFA # 20 SL. INCONTINENT B&B ON BEDREST.MULTIPLE WOUNDS SAFETY AND ASPIRATION PRECAUTIONS IN PLACE BED IN LOW LOCKED POSITION WILL CONT TO MONITOR ACCORDINGLY
[2019-03-31 10:20] LABS: CALCIUM, SERUM 8.2 mg/dL (8.5-10.1); POTASSIUM 3.9 mmol/L (3.5-5.1)
[2019-03-31 10:26] LABS: BILIRUBIN,TOTAL 0.6 mg/dL (0.2-1.0); TOTAL PROTEIN, SERUM 6.7 g/dL (6.4-8.2)
--- NOTE | 2019-03-31 10:29 | NUR ---
RECEIVED PATIENT FROM MED SURG TRANSFERRED FOR HYPERKALEMIA 8.1 CURRENT LABS K+ 3.9
[2019-03-31 10:36] LABS: ALBUMIN 1.3 g/dL (3.4-5.0)
[2019-03-31] MEDS: HEPARIN SODIUM, PORCINE 5000 UNITS/1 ML VIAL SQ SCH ×2 (10:46→21:00)
[2019-03-31] MEDS: METHADONE HCL 10 MG TABLET PO SCH (11:37)
--- NOTE | 2019-03-31 11:39 | NUR ---
RN NOTES PATIENT TRANSFERRED BACK FROM ICU ACCOMPANIED BY ICU NURSE IBIS. PT A/O X3. VERBALLY RESPONSIVE WITH NO C/O PAIN OR DISCOMFORTS VOICED. WILL CONTINUE TO MONITOR PT ACCORDINGLY.
[2019-03-31] MEDS: Magnesium 1GM/D5W 100ML PREMIX 100 ML IV SCH ×2 (11:58→13:30)
[2019-03-31] MEDS: SOD FERRIC GLUC 125 MG in IV NS 0.9% 100 ML IV SCH (15:58)
[2019-03-31] MEDS: CEFTRIAXONE 1 G in IV D5W 50 ML IV SCH (17:57)
--- NOTE | 2019-03-31 18:52 | NUR ---
MS RN CLOSING NOTES PT IN BED RESTING AT MODERATE HIGH BACKREST POSITION. A/O X2-3, SAME VERBALLY RESPONSIVE. ON ROOM AIR, TOLERATING WELL WITH NO SOB NOTED. PAMELA PICC LINE INTACT & PATENT W/ DRESSING C/D/I, IVF OF D5 1/2 NS @ 100 ML/HR INFUSING WELL. IV SL ON RFA G#20 INTACT AND FLUSHES WELL. GONZALES CATH IN PLACE AND DRAINING YELLOW URINE W/ SOME SEDIMENTS NOTED, GONZALES CARE DONE. PT REPOSITIONED Q 2HRS AND PRN. KEPT CLEAN AND DRY. ALL NEEDS AND CARE PROVIDED WELL. SAFETY MEASURES KEPT IN PLACE. BED IN LOW LOCKED POSITION W/ SIDE RAILS UP X2. CALL LIGHT WITHIN REACH. WILL ENDORSE TO SCREEN TENDER HELPER NURSE FOR CASSIE
--- NOTE | 2019-03-31 19:20 | NUR ---
MS/RN NOTES RECEIVED PT. LYING IN BED. PT. IS AWAKE, ALERT AND ORIENTED X2. BREATHING EVEN AND UNLABORED ON ROOM AIR. NO SOB, RESPIRATORY DISTRESS OR COMPLAINTS OF PAIN NOTED AT THIS TIME.PT. WITH RIGHT UPPER ARM PICC PRESENT, PATENT AND INTACT ADMINISTERING TO PT. D5NS @ 100ML/HR. PT. WITH RIGHT FOREARM 20 GAUGE IV SALINE LOCK PRESENT, PATENT AND INTACT. PT. WITH GONZALES CATHETER PRESENT, PATENT AND INTACT DRAINING YELLOW URINE WITH SEDIMENT. BED LOCKED AND IN LOWEST POSITION, SIDE RAILS UP X3, BED ALARM ON, CALL LIGHT WITHIN REACH, WILL CONTINUE TO MONITOR.
[2019-03-31] MEDS ORDERED: MAGNESIUM CITRATE 296 ML BOTTLE PO ONE (20:30)
[2019-03-31] MEDS ORDERED: PEG 3350/NA SULF,BICARB,CL/KCL 4,000 ML BOTTLE PO ONE (20:30)
--- NOTE | 2019-03-31 20:55 | NUR ---
MS/RN NOTES SPOKE WITH ABRASIVE GRADER HELPER REGLA JIMENEZ TO CLARIFY ORDERS FOR 2030 SCHEDULED MAG CITRATE AND GOLYTELY. PER ABRASIVE GRADER HELPER FLORENTINO NOTE PT. YUMIKO BE HAVING EGD/COLONOSCOPY ON SUNDAY. PER ABRASIVE GRADER HELPER REGLA HOLD MAG CITRATE AND GOLYTELY FOR NOW, WAIT FOR MORNING LAB RESULTS AND WILL RE-EVALUATE. WILL CARRY OUT ORDERS. WILL CONTINUE TO MONITOR.
--- NOTE | 2019-03-31 21:05 | NUR ---
MS/RN NOTES CLARIFIED WITH SENIOR AUDITOR REGLA JIMENEZ IF SHE WANTED TO HOLD PT. SCHEDULED HEPARIN MEDICATION FOR TONIGHT PT. HAS LOW H/H 8.05/16. PER RIKI ARAUZ HOLD TONIGHTS 03/31/19, 2099 SCHEDULED HEPARIN MEDICATION. WILL CARRY OUT ORDER. WILL CONTINUE TO MONITOR.
[2019-03-31] MEDS: MIRTAZAPINE 15 MG TABLET PO SCH (22:00)
[2019-04-01] MEDS: IPRATROPIUM NEB FS 0.5 MG/2.5 ML AMPUL.NEB NEB SCH ×7 (03:30→23:34)
[2019-04-01] MEDS: IV D5/ 0.9% NACL 1,000 ML IV PRN ×2 (03:31→16:12)
--- NOTE | 2019-04-01 06:14 | NUR ---
MS/RN NOTES PT. IS LYING IN BED RESTING. BREATHING EVEN AND UNLABORED ON ROOM AIR. NO SOB, RESPIRATORY DISTRESS OR COMPLAINTS OF PAIN NOTED AT THIS TIME AND THROUGHOUT SHIFT. PT. WITH RIGHT UPPER ARM PICC PRESENT, PATENT AND INTACT ADMINISTERING TO PT. D5NS @ 100ML/HR. PT. WITH RIGHT FOREARM 20 GAUGE IV SALINE LOCK PRESENT, PATENT AND INTACT. PT. WITH GONZALES CATHETER PRESENT, PATENT AND INTACT DRAINING YELLOW URINE WITH SEDIMENT. ALL PT. NEEDS MET. PT. OFFLOADED, TURNED AND REPOSITIONED Q2H AND NEEDED. EXPLAINED EGD/COLONOSCOPY PROCEDURE TO PT. PT. REFUSING TO HAVE PROCEDURES DONE. BED LOCKED AND IN LOWEST POSITION, SIDE RAILS UP X3, BED ALARM ON, CALL LIGHT WITHIN REACH, WILL ENDORSE TO DAYSHIFT NURSE FOR CONTINUITY OF CARE.
[2019-04-01 06:32] LABS: CALCIUM, SERUM 7.4 mg/dL (8.5-10.1); CREATININE 0.8 mg/dL (0.6-1.3); MAGNESIUM 1.7 mg/dL (1.8-2.4); PHOSPHORUS 3.5 mg/dL (2.5-4.9)
[2019-04-01 06:34] LABS: BASOPHILS % (AUTO) 0.3 % (0.0-2.0); HEMATOCRIT 30 % (39-51); HEMOGLOBIN 9.9 g/dL (13.5-17.5); LYMPHOCYTES # (AUTO) 1.1 /CMM (0.8-4.8); LYMPHOCYTES % (AUTO) 11.1 % (20.0-44.0); MEAN CORPUSCULAR HGB CONC 33 g/dl (31.0-36.0); MEAN CORPUSCULAR VOLUME 80 fL (80-96); MONOCYTES # (AUTO) 0.7 /CMM (0.1-1.30); MONOCYTES % (AUTO) 7.3 % (2.0-12.0); NEUTROPHILS # (AUTO) 7.9 /CMM (1.8-8.9); NEUTROPHILS % (AUTO) 80.3 % (43.0-81.0); PLATELET COUNT (AUTO) 284 /CMM (150-450); RED BLOOD CELL COUNT(AUTO) 3.75 MIL/uL (4.5-6.0); WHITE BLOOD COUNT (AUTO) 9.9 K/uL (4.3-11.0)
[2019-04-01 06:39] LABS: POTASSIUM 2.7 mmol/L (3.5-5.1)
--- NOTE | 2019-04-01 06:44 | NUR ---
MS/RN NOTES CALLED [facility] [employer] AND NOTIFIED DR. ALVARADO PT. WITH CRITICAL LAB VALUE: POTASSIUM 2.7. PER DR. ALVARADO NEW ORDER: POTASSIUM CHLORIDE 60 MEQ PO X 1 NOW. WILL CARRY OUT ORDER. WILL CONTINUE TO MONITOR.
[2019-04-01] MEDS ORDERED: POTASSIUM CHLORIDE 20 MEQ TAB.PRT.SR PO ONE ×2 (07:00→23:30)
--- NOTE | 2019-04-01 07:36 | NUR ---
MS RN OPENING NOTES RECEIVED PT LAYING IN BED WITH HOB SLIGHTLY ELEVATED. PT IS A/O X2, AFEBRILE. RESPIRATIONS ARE EVEN AND UNLABORED, NOT IN ANY ACUTE DISTRESS NOTED. PT DENIES ANY PAIN AT THIS TIME, NO C/O SOB, N/V. PAMELA PICC LINE INTACT, NO INFILTRATION NOTED. DRESSING KEPT CLEAN AND DRY. SAFETY MEASURES ARE IN PLACE. INSTRUCTED PT TO USE CALL LIGHT WHEN ASSISTANCE IS NEEDED, CALL LIGHT IS LEFT WITHIN REACH. WILL MONITOR THROUGHOUT SHIFT FOR CONTINUITY OF CARE.
[2019-04-01 08:00] VITALS: BP 153/85
[2019-04-01] MEDS: Magnesium 1GM/D5W 100ML PREMIX 100 ML IV SCH ×2 (08:49→10:06)
[2019-04-01] MEDS: DOXYCYCLINE HYCLATE (100 MG) 100 MG TABLET PO SCH ×2 (08:49→21:32)
[2019-04-01] MEDS: METHADONE HCL 10 MG TABLET PO SCH (08:50)
[2019-04-01] MEDS: ENOXAPARIN SODIUM 40 MG/0.4 ML DISP.SYRIN SQ SCH (08:51)
[2019-04-01 09:28] LABS: BAND % (MANUAL) 1 % (0.0-5.0); LYMPHOCYTES % (MANUAL) 9 % (16-48); MONOCYTES % (MANUAL) 6 % (0-11.0); MYELOCYTES % 1 % (0-0); NEUTROPHILS % (MANUAL) 83 (42-76)
--- NOTE | 2019-04-01 10:04 | NUR ---
MS RN NOTES-- EXPLAINED THE RISKS AND BENEFITS OF TAKING GOLYTELY FOR PREPARATION OF EGD/COLONOSCOPY. PT REFUSED AND STATES, "I DONT NEED THAT. I DONT WANT THAT." EXPLAINED X4, STILL NOTED WITH REFUSAL.
[2019-04-01] MEDS: SOD FERRIC GLUC 125 MG in IV NS 0.9% 100 ML IV SCH (14:59)
[2019-04-01 16:00] VITALS: BP 107/93
--- NOTE | 2019-04-01 16:00 | NUR ---
MS ADEN NOTES-- PT CONTINUES TO REFUSE GOLYTELY. EXPLAINED THE RISKS AND BENEFITS OF TAKING GOLYTELY FOR PREPARATION OF EGD/COLONOSCOPY. PT ADAMANTLY REFUSES. EXPLAINED X4, STILL NOTED WITH REFUSAL. Addendum: 04/01/19 at 1628 by MARAH SANTIAGO RN RIKI ARAUZ MADE AWARE.
[2019-04-01] MEDS: CEFTRIAXONE 1 G in IV D5W 50 ML IV SCH (17:38)
--- NOTE | 2019-04-01 18:00 | NUR ---
MS RN NOTES-- PT CONTINUES TO REFUSE GOLYTELY AND TO SIGN CONSENT FORMS FOR EGD/COLONOSCOPY. EXPLAINED AGAIN THE RISKS AND BENEFITS, PT STILL NOTED WITH REFUSAL.
--- NOTE | 2019-04-01 18:30 | NUR ---
MS RN CLOSING NOTES ALL NEEDS MET AND RENDERED. PT IS A/O X2 AFEBRILE. RESPIRATIONS ARE EVEN AND UNLABORED, NOT IN ANY ACUTE DISTRESS NOTED. PT DENIES ANY PAIN AT THIS TIME, NO C/O SOB, N/V. MIDLINE TO PAMELA INTACT, NO INFILTRATION NOTED. DRESSING KEPT CLEAN AND DRY. SAFETY MEASURES ARE IN PLACE. REMINDED PT TO USE CALL LIGHT WHEN ASSISTANCE IS NEEDED, CALL LIGHT IS LEFT WITHIN REACH. WILL ENDORSE TO NEXT SHIFT FOR CONTINUITY OF CARE.
--- NOTE | 2019-04-01 19:12 | NUR ---
MS/RN NOTES RECEIVED PT. LYING IN BED. PT. IS AWAKE, ALERT AND ORIENTED X2. BREATHING EVEN AND UNLABORED ON ROOM AIR. NO SOB, RESPIRATORY DISTRESS OR COMPLAINTS OF PAIN NOTED AT THIS TIME. PT. WITH RIGHT UPPER ARM PICC PRESENT, PATENT AND INTACT ADMINISTERING TO PT. D5NS @ 40ML/HR. PT. WITH RIGHT FOREARM 20 GAUGE IV SALINE LOCK PRESENT, PATENT AND INTACT. PT. WITH GONZALES CATHETER PRESENT, PATENT AND INTACT DRAINING YELLOW URINE WITH SEDIMENT. BED LOCKED AND IN LOWEST POSITION, SIDE RAILS UP X3, BED ALARM ON, CALL LIGHT WITHIN REACH, WILL CONTINUE TO MONITOR.
[2019-04-01 20:40] LABS: CALCIUM, SERUM 7.2 mg/dL (8.5-10.1); CREATININE 0.9 mg/dL (0.6-1.3)
[2019-04-01 20:58] VITALS: BP 142/74
[2019-04-01] MEDS: MIRTAZAPINE 15 MG TABLET PO SCH (21:32)
--- NOTE | 2019-04-01 22:49 | NUR ---
MS/RN NOTES NOTIFIED HEAT PUMP INSTALLER REGLA [facility] SHE ORDERED AT 1999 RESULTED. PT. CURRENT POTASSIUM LEVEL IS 3.0. PER HEAT PUMP INSTALLER REGLA NEW ORDERS: 40 MEQ POTASSIUM CHLORIDE X1 NOW. WILL CARRY OUT ORDER. WILL CONTINUE TO MONITOR.
[2019-04-02] MEDS: IPRATROPIUM NEB FS 0.5 MG/2.5 ML AMPUL.NEB NEB SCH ×5 (03:46→20:34)
--- NOTE | 2019-04-02 06:32 | NUR ---
MS/RN NOTES PT. IS LYING IN BED RESTING. BREATHING EVEN AND UNLABORED ON ROOM AIR. NO SOB, RESPIRATORY DISTRESS OR COMPLAINTS OF PAIN NOTED AT THIS TIME. PT. WITH RIGHT UPPER ARM PICC PRESENT, PATENT AND INTACT ADMINISTERING TO PT. D5NS @ 40ML/HR. PT. WITH GONZALES CATHETER PRESENT, PATENT AND INTACT DRAINING YELLOW URINE WITH SEDIMENT. ALL PT. NEEDS MET. PT. OFFLOADED, TURNED AND REPOSITIONED Q2H AND NEEDED. BED LOCKED AND IN LOWEST POSITION, SIDE RAILS UP X3, BED ALARM ON, CALL LIGHT WITHIN REACH, WILL ENDORSE TO DAYSORFT NURSE FOR CONTINUITY OF CARE.
[2019-04-02 06:37] LABS: BASOPHILS # (AUTO) 0.1 /CMM (0.0-0.2); BASOPHILS % (AUTO) 0.6 % (0.0-2.0); EOSINOPHILS % (AUTO) 1.4 % (0.0-6.0); HEMATOCRIT 29 % (39-51); HEMOGLOBIN 9.3 g/dL (13.5-17.5); LYMPHOCYTES # (AUTO) 1.3 /CMM (0.8-4.8); MEAN CORPUSCULAR HGB CONC 33 g/dl (31.0-36.0); MEAN CORPUSCULAR VOLUME 82 fL (80-96); MONOCYTES # (AUTO) 0.9 /CMM (0.1-1.30); MONOCYTES % (AUTO) 9.9 % (2.0-12.0); NEUTROPHILS # (AUTO) 6.8 /CMM (1.8-8.9); NEUTROPHILS % (AUTO) 74.1 % (43.0-81.0); PLATELET COUNT (AUTO) 260 /CMM (150-450); RED BLOOD CELL COUNT(AUTO) 3.46 MIL/uL (4.5-6.0); WHITE BLOOD COUNT (AUTO) 9.2 K/uL (4.3-11.0)
[2019-04-02 06:48] LABS: BILIRUBIN,TOTAL 0.4 mg/dL (0.2-1.0); CALCIUM, SERUM 7.5 mg/dL (8.5-10.1); CREATININE 0.7 mg/dL (0.6-1.3); MAGNESIUM 1.6 mg/dL (1.8-2.4); PHOSPHORUS 3.3 mg/dL (2.5-4.9); POTASSIUM 3.3 mmol/L (3.5-5.1); TOTAL PROTEIN, SERUM 6.3 g/dL (6.4-8.2)
[2019-04-02 06:53] LABS: ALBUMIN 1.3 g/dL (3.4-5.0)
[2019-04-02 08:00] VITALS: BP_SYST 140; BP_SYST 146; BP_DIAS 77
--- NOTE | 2019-04-02 08:00 | NUR ---
MS/RN NOTES PT. IS LYING IN BED RESTING-ALERT AND ORIENTED X3.FORGETFUL. VERBALLY RESPONSIVE.BREATHING EVEN AND UNLABORED ON ROOM AIR. NO SOB, RESPIRATORY DISTRESS OR COMPLAINTS OF PAIN NOTED AT THIS TIME. PT. WITH RIGHT UPPER ARM PICC PRESENT, PATENT AND INTACT PT. WITH GONZALES CATHETER PRESENT, PATENT AND INTACT DRAINING YELLOW URINE WITH SEDIMENT. ALL PT.PT. OFFLOADED, TURNED AND REPOSITIONED Q2H AND NEEDED. BED LOCKED AND IN LOWEST POSITION, SIDE RAILS UP X3, BED ALARM ON, CALL LIGHT WITHIN REACH
[2019-04-02] MEDS: POTASSIUM CHLORIDE 20 MEQ TAB.PRT.SR PO SCH ×2 (08:31→09:00)
[2019-04-02] MEDS: METHADONE HCL 10 MG TABLET PO SCH (08:32)
[2019-04-02] MEDS: DOXYCYCLINE HYCLATE (100 MG) 100 MG TABLET PO SCH ×2 (08:32→21:43)
[2019-04-02] MEDS: ENOXAPARIN SODIUM 40 MG/0.4 ML DISP.SYRIN SQ SCH (08:33)
[2019-04-02] MEDS ORDERED: MIRT15TA PO (08:37)
[2019-04-02] MEDS ORDERED: CEFT1VIA15 IV (08:37)
[2019-04-02] MEDS ORDERED: DOXY100T2 PO (08:37)
--- NOTE | 2019-04-02 10:08 | NUR ---
PT WAS GIVEN SPONGE BATH CAUSING DELAY IN ADMINISTERING KDUR 20 MEQ PO NOTIFIED WINSTON,PHARMACIST AND GAVE INSTRUCTIONS TO REENTER THE ORDER TO OBTAIN 2ND DOSE OF KDUR 20 MEQ PO.
[2019-04-02] MEDS ORDERED: MAGNESIUM OXIDE 400 MG TABLET PO ONE (10:30)
[2019-04-02] MEDS ORDERED: POTASSIUM CHLORIDE 20 MEQ TAB.PRT.SR PO ONE (10:30)
[2019-04-02] MEDS ORDERED: IV D5W 1,000 ML IV PRN (11:21)
[2019-04-02] MEDS: SOD FERRIC GLUC 125 MG in IV NS 0.9% 100 ML IV SCH (14:04)
[2019-04-02 16:00] VITALS: BP 149/86
[2019-04-02] MEDS: CEFTRIAXONE 1 G in IV D5W 50 ML IV SCH (17:42)
--- NOTE | 2019-04-02 18:34 | NUR ---
PT'S BROTHER,KEN ARRIVED AND WAS ENCOURAGING PT TO EAT MORE.PT HAS POOR INTAKE. PENDING DISCHARGE, AWAITING FOR AUTHORIZATION OF PT'S INSURANCE FOR PT'S DISCHARGE TO [facility].
--- NOTE | 2019-04-02 19:05 | NUR ---
MS RN NOTES RECEIVED PT IN BED AWAKE AND ABLE TO MAKE NEEDS KNOWN. PT A/O X2 WITH PERIODS OF CONFUSION. RESPIRATIONS EVEN AND UNLABORED WITH NO S/S OF ACUTE DISTRESS OR SOB NOTED. NO COMPLAINTS OF PAIN AT THIS TIME. PT WITH RIGHT UPPER ARM PICC PRESENT, PATENT AND INTACT PT RUNNING D5 @50ML/HR. PT ASLO WITH GONZALES CATHETER PRESENT, INTACT AND DRAINING WELL. SAFETY MEASURES IN PLACE WITH BED IN LOWEST LOCKED POSITION WITH SIDE RAILS UP X2. CALL LIGHT WITHIN REACH. WILL CONTINUE TO MONITOR.
[2019-04-02 20:00] VITALS: BP 121/76
[2019-04-02] MEDS: MIRTAZAPINE 15 MG TABLET PO SCH (21:43)
[2019-04-03] MEDS: IPRATROPIUM NEB FS 0.5 MG/2.5 ML AMPUL.NEB NEB SCH ×7 (00:17→19:30)
--- NOTE | 2019-04-03 04:58 | NUR ---
MS RN NOTES PT REFUSED BED BATH AND WOUND TREATMENT.
--- NOTE | 2019-04-03 06:56 | NUR ---
MS RN NOTES PT IN BED ASLEEP BUT EASILY AWOKEN VERBALLY OR BY TOUCH. PT A/O X2 WITH PERIODS OF CONFUSION AND ABLE TO MAKE NEEDS KNOWN. RESPIRATIONS EVEN AND UNLABORED WITH NO S/S OF ACUTE DISTRESS OR SOB NOTED THROUGHOUT SHIFT. NO COMPLAINTS OF PAIN AT THIS TIME. PT WITH RIGHT UPPER ARM PICC PRESENT, PATENT AND INTACT PT RUNNING D5 @50ML/HR. PT ASLO WITH GONZALES CATHETER PRESENT, INTACT AND DRAINING WELL. TURNED PT Q2 HRS. SAFETY MEASURES IN PLACE WITH BED IN LOWEST LOCKED POSITION WITH SIDE RAILS UP X2. CALL LIGHT WITHIN REACH. WILL ENDORSE TO ONCOMING NURSE FOR CASSIE.
[2019-04-03 07:13] LABS: CALCIUM, SERUM 7.5 mg/dL (8.5-10.1); CREATININE 0.6 mg/dL (0.6-1.3); MAGNESIUM 1.3 mg/dL (1.8-2.4); POTASSIUM 3.4 mmol/L (3.5-5.1)
[2019-04-03 08:00] VITALS: BP 109/78
--- NOTE | 2019-04-03 08:00 | NUR ---
MS RN NOTES PT IN BED A/O X2 WITH PERIODS OF CONFUSION AND ABLE TO MAKE NEEDS KNOWN. RESPIRATIONS EVEN AND UNLABORED WITH NO S/S OF ACUTE DISTRESS OR SOB NOTED. NO COMPLAINTS OF PAIN AT THIS TIME. PT WITH RIGHT UPPER ARM PICC PRESENT, PATENT AND INTACT PT RUNNING D5 @50ML/HR. PT ASLO WITH GONZALES CATHETER PRESENT, INTACT AND DRAINING WELL. TURNED PT Q2 HRS. ENCOURAGED INCREASE ORAL INTAKE.SAFETY MEASURES IN PLACE WITH BED IN LOWEST LOCKED POSITION WITH SIDE RAILS UP X2. CALL LIGHT WITHIN REACH.
[2019-04-03] MEDS: POTASSIUM CHLORIDE 20 MEQ TAB.PRT.SR PO SCH ×2 (08:35→09:55)
[2019-04-03] MEDS: Magnesium 1GM/D5W 100ML PREMIX 100 ML IV SCH ×2 (08:35→09:51)
[2019-04-03] MEDS: DOXYCYCLINE HYCLATE (100 MG) 100 MG TABLET PO SCH (08:36)
[2019-04-03] MEDS: METHADONE HCL 10 MG TABLET PO SCH (08:37)
[2019-04-03] MEDS: ENOXAPARIN SODIUM 40 MG/0.4 ML DISP.SYRIN SQ SCH (08:39)
[2019-04-03] MEDS ORDERED: METOPROLOL TARTRATE 50 MG TABLET PO SCH (09:00)
--- NOTE | 2019-04-03 14:45 | NUR ---
PT HAS POOR PO INTAKE AND MIKE POZOITIAN CALLED AND MADE RECOMMENDATIONS TO INCREASE PT'S PO INTAKE.PT LOVES ENSURE CHOCOLATE.NOTIFIED DR BERGMAN AND MADE AWARE WITH DOCTOR'S ORDERS AND CARRIED OUT.
[2019-04-03 15:45] VITALS: BP 123/80
[2019-04-03] MEDS: ENSURE ENLIVE CHOC 237 ML CAN PO SCH ×2 (16:00→18:04)
--- NOTE | 2019-04-03 18:00 | NUR ---
REPORT CALLED IN TO TOMÁSRN PREPRESS TECHNICIAN OF [facility] AND INSTRUCTED TO CONTINUE IV /PO ATB AND MEDS ORDERED. GONZALES CATHETER AND PAMELA PICC LINE AND RFA HEPLOCK WILL REMAIN IN PLACE.PT DENIES ANY PAIN OR DISTRESS.AWAITING FOR AMBULANCE ELECTRICAL SUPERINTENDENT.
[2019-04-03] MEDS: CEFTRIAXONE 1 G in IV D5W 50 ML IV SCH (18:05)
--- NOTE | 2019-04-03 22:23 | NUR ---
MS/RN PATIENT LEFT THE FLOOR BY AMBULANCE IN STABLE CONDITION. Addendum: 04/03/19 at 2224 by [facility] DIAL RN PATIENT LEFT THE FLOOR AT 2019.
== END 2019-04-03 20:20 | DRG 720 ==
LOC: ER 13:09 → ICU 15:51 → TELE 03-30 21:05 → ICU 03-31 09:10 → MED 03-31 11:14
PROVIDERS: ADMIT Hospitalist; ATTEND Nurse Practitioner Acute Care
PROC: 05HB33Z Insertion of Infusion Device into Right Basilic Vein, Percutaneous Approach (ICD-10-PCS; principal; 2019-03-28)
DX: A40.0 Sepsis due to streptococcus, group A (principal); J96.01 Acute respiratory failure with hypoxia; N17.0 Acute kidney failure with tubular necrosis; R65.21 Severe sepsis with septic shock; E43 Unspecified severe protein-calorie malnutrition; G92 Toxic encephalopathy; J15.9 Unspecified bacterial pneumonia; J90 Pleural effusion, not elsewhere classified; I71.2 Thoracic aortic aneurysm, without rupture; S22.42XA Multiple fractures of ribs, left side, initial encounter for closed fracture; S27.321A Contusion of lung, unilateral, initial encounter; F14.11 Cocaine abuse, in remission; D50.9 Iron deficiency anemia, unspecified; E86.0 Dehydration; E87.1 Hypo-osmolality and hyponatremia; J98.11 Atelectasis; Z96.641 Presence of right artificial hip joint; R62.7 Adult failure to thrive; L03.116 Cellulitis of left lower limb; L03.115 Cellulitis of right lower limb; Z87.891 Personal history of nicotine dependence; R91.1 Solitary pulmonary nodule; R64 Cachexia; E87.5 Hyperkalemia; L89.610 Pressure ulcer of right heel, unstageable; L89.510 Pressure ulcer of right ankle, unstageable; E86.1 Hypovolemia; E87.6 Hypokalemia; K44.9 Diaphragmatic hernia without obstruction or gangrene; X58.XXXA Exposure to other specified factors, initial encounter; Y92.9 Unspecified place or not applicable; F41.9 Anxiety disorder, unspecified; F32.9 Major depressive disorder, single episode, unspecified; K43.9 Ventral hernia without obstruction or gangrene
CPT/HCPCS: 36415; 36600; 70450-TC; 71045-TC; 71250-TC; 80048-TC; 80053-TC; 80061-TC; 80076-TC; 80305; 81000-TC; 82105; 82140-TC; 82378; 82533; 82550-TC; 82570-TC; 82728-TC; 82803-TC; 82962-TC; 83540-TC; 83605-TC; 83615-TC; 83735-TC; 83880; 83970; 84100-TC; 84153-TC; 84154-TC; 84155; 84155-TC; 84165; 84300-TC; 84439-TC; 84443-TC; 84484-TC; 84702-TC; 85025-TC; 85730-TC; 87040-TC; 87081-TC; 87086-TC; 87186-TC; 93307-TC; 93970-TC; 94799-TC; 97530-TC; A6403; C1751; G0378; G0480; J0610; J0696; J1644; J1650; J1720; J1815; J2543; J2916; J3475; J3480; J7030; J7042; J7050; J7060; J7070

== ENCOUNTER 2019-05-20 16:55 | Inpatient (IN) | payer MEDICARE, OTHER ==
[~2019-05-20] VITALS: Ht 167.6 cm; Wt 50.3 kg
[~2019-05-20 16:55] MED LIST changes: +CEFT1VIA15 IV; +DOXY100T2 PO; +MIRT15TA PO
--- NOTE | 2019-05-20 17:15 | NUR ---
ELSA RA 860 " Stays w/his brother at home family called they cant take care of him anymore. 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 ESTABLISHED IV LINES AND BLOOD DRAWN AND SENT TO LAB. DR. LARRY AT BEDSIDE FOR EVAL.
[2019-05-20] MEDS ORDERED: PIPERACILLIN /TAZOBACTAM 3.375 G in IV D5W 50 ML IV ONE (17:30)
[2019-05-20] MEDS ORDERED: VANCOMYCIN 1 GM in IV D5W 250 ML IV ONE (17:30)
[2019-05-20] MEDS ORDERED: IV NS 0.9% 1,000 ML BAG IV ONE ×2 (17:30→19:00)
[2019-05-20 17:33] LABS: BASOPHILS # (AUTO) 0.1 /CMM (0.0-0.2); BASOPHILS % (AUTO) 0.3 % (0.0-2.0); EOSINOPHILS % (AUTO) 0.1 % (0.0-6.0); HEMATOCRIT 30 % (39-51); HEMOGLOBIN 9.6 g/dL (13.5-17.5); LYMPHOCYTES # (AUTO) 0.4 /CMM (0.8-4.8); LYMPHOCYTES % (AUTO) 1.6 % (20.0-44.0); MEAN CORPUSCULAR HGB CONC 32 g/dl (31.0-36.0); MEAN CORPUSCULAR VOLUME 84 fL (80-96); MONOCYTES # (AUTO) 0.7 /CMM (0.1-1.30); MONOCYTES % (AUTO) 2.7 % (2.0-12.0); NEUTROPHILS # (AUTO) 26.1 /CMM (1.8-8.9); NEUTROPHILS % (AUTO) 95.3 % (43.0-81.0); PLATELET COUNT (AUTO) 486 /CMM (150-450); RED BLOOD CELL COUNT(AUTO) 3.55 MIL/uL (4.5-6.0); WHITE BLOOD COUNT (AUTO) 27.4 K/uL (4.3-11.0)
[2019-05-20 17:39] LABS: APPEARANCE,URINE Slightly Cloudy (CLEAR); BILIRUBIN,URINE MODERATE (NEGATIVE); BLOOD, URINE Trace-intact Ery/uL (NEGATIVE); COLOR,URINE Dark (YELLOW); KETONES,URINE Negative (NEGATIVE); LEUKOCYTE ESTERASE ,URINE Negative (NEGATIVE); NITRITE, URINE Negative (NEGATIVE); PH,URINE 5.5 (5.0-8.0); PROTEIN,URINE 30 mg/dl (NEGATIVE); UGLUCOSE Negative (NEGATIVE)
--- NOTE | 2019-05-20 17:53 | NUR ---
BROTHER AT BEDSIDE.
[2019-05-20 17:58] LABS: BACTERIA,URINE Moderate /HPF (None Seen); SQUAMOUS EPITHELIAL CELL,UR Few /HPF (None Seen)
[2019-05-20 17:58] LABS: CALCIUM, SERUM 9.2 mg/dL (8.5-10.1); CARBON DIOXIDE 28 mmol/L (21-32); CHLORIDE 100 mmol/L (98-107); CREATININE 1.3 mg/dL (0.6-1.3); GLUCOSE 112 mg/dL (74-106); POTASSIUM 4.2 mmol/L (3.5-5.1); SODIUM SERUM 139 mmol/L (136-145); UREA NITROGEN, BLOOD 45 mg/dL (7-18)
[2019-05-20 17:59] LABS: RBC,URINE 0-2 /HPF (0-2); URINE AMORPHOUS URATE Many /HPF (None Seen); WBC,URINE 0-2 /HPF (0-3)
[2019-05-20 18:06] LABS: SERUM AMMONIA 34 umol/L (11-32)
--- NOTE | 2019-05-20 18:08 | NUR ---
SPOKE TO FERMIN, MARCIN, AUTH #[id number]
[2019-05-20 18:11] LABS: ALANINE AMINOTRANSFERASE 36 U/L (12-78); ALBUMIN 2.3 g/dL (3.4-5.0); ALKALINE PHOSPHATASE 128 U/L (46-116); ASPARTATE AMINOTRANSFERASE 53 U/L (15-37); BILIRUBIN,DIRECT 0.4 mg/dL (0.0-0.2); BILIRUBIN,TOTAL 0.6 mg/dL (0.2-1.0); TOTAL PROTEIN, SERUM 7.8 g/dL (6.4-8.2)
--- NOTE | 2019-05-20 18:12 | NUR ---
CALLED [employer]. TIMBER KILLER WAS PAGED.
[2019-05-20 18:21] LABS: CREATINE KINASE, TOTAL 201 U/L (39-308)
--- NOTE | 2019-05-20 19:12 | NUR ---
report given to abhijit lopez for [employer].
--- NOTE | 2019-05-20 19:23 | NUR ---
PT RECEIVED FROM ADEN KNIGHT FOR CASSIE.
--- NOTE | 2019-05-20 19:27 | NUR ---
ZAID 119 GIVEN
[2019-05-20] MEDS ORDERED: ACETAMINOPHEN 325 MG TABLET PO PRN (19:30)
[2019-05-20] MEDS ORDERED: Z GUARD REMEDY 2 OZ OINT TP PRN (19:30)
[2019-05-20] MEDS ORDERED: ONDANSETRON HCL/PF 4 MG/2 ML VIAL IVP PRN (19:30)
[2019-05-20] MEDS ORDERED: MAG HYDROX/AL HYDROX/SIMETH 30 ML UDC PO PRN (19:30)
[2019-05-20] MEDS ORDERED: MAGNESIUM HYDROXIDE 30 ML UDC PO PRN (19:30)
[2019-05-20] MEDS ORDERED: FEE PK DOSING 1 MIN EA MC ONE (19:53)
--- NOTE | 2019-05-20 20:04 | NUR ---
REPORT GIVEN TO ADEN RODRIGUEZ FOR CASSIE.
--- NOTE | 2019-05-20 20:10 | NUR ---
PT TRANSPORTED TO UNIT ON [facility] WITH EMT AND RN AT BEDSIDE. NAD NOTED DURING TRANSPORT.
[2019-05-20] MEDS ORDERED: PIPERACILLIN /TAZOBACTAM 2.25 G VIAL IV ONE (23:39)
[2019-05-20] MEDS: PIPERACILLIN /TAZOBACTAM 2.25 G in IV D5W 50 ML IV SCH (23:44)
[2019-05-21] VITALS: BP 127/62
[2019-05-21] MEDS ORDERED: ENOXAPARIN SODIUM 40 MG/0.4 ML DISP.SYRIN SQ ONE (02:00)
[2019-05-21 04:00] VITALS: BP 92/56
[2019-05-21] MEDS: PIPERACILLIN /TAZOBACTAM 2.25 G in IV D5W 50 ML IV SCH ×3 (05:37→19:17)
[2019-05-21 06:23] LABS: BASOPHILS % (AUTO) 0.1 % (0.0-2.0); EOSINOPHILS % (AUTO) 0.1 % (0.0-6.0); HEMATOCRIT 26 % (39-51); HEMOGLOBIN 8.5 g/dL (13.5-17.5); LYMPHOCYTES # (AUTO) 0.7 /CMM (0.8-4.8); LYMPHOCYTES % (AUTO) 3.1 % (20.0-44.0); MEAN CORPUSCULAR HGB CONC 32 g/dl (31.0-36.0); MEAN CORPUSCULAR VOLUME 83 fL (80-96); MONOCYTES # (AUTO) 0.5 /CMM (0.1-1.30); MONOCYTES % (AUTO) 2.4 % (2.0-12.0); NEUTROPHILS # (AUTO) 20.3 /CMM (1.8-8.9); NEUTROPHILS % (AUTO) 94.3 % (43.0-81.0); PLATELET COUNT (AUTO) 420 /CMM (150-450); RED BLOOD CELL COUNT(AUTO) 3.16 MIL/uL (4.5-6.0); WHITE BLOOD COUNT (AUTO) 21.5 K/uL (4.3-11.0)
[2019-05-21 06:56] LABS: ALANINE AMINOTRANSFERASE 25 U/L (12-78); ALBUMIN 1.6 g/dL (3.4-5.0); ALKALINE PHOSPHATASE 100 U/L (46-116); ASPARTATE AMINOTRANSFERASE 31 U/L (15-37); BILIRUBIN,TOTAL 0.4 mg/dL (0.2-1.0); CALCIUM, SERUM 8.3 mg/dL (8.5-10.1); CARBON DIOXIDE 27 mmol/L (21-32); CHLORIDE 104 mmol/L (98-107); CREATININE 0.9 mg/dL (0.6-1.3); GLUCOSE 85 mg/dL (74-106); MAGNESIUM 1.8 mg/dL (1.8-2.4); PHOSPHORUS 2.9 mg/dL (2.5-4.9); POTASSIUM 3.1 mmol/L (3.5-5.1); SODIUM SERUM 141 mmol/L (136-145); TOTAL PROTEIN, SERUM 6.1 g/dL (6.4-8.2); UREA NITROGEN, BLOOD 36 mg/dL (7-18)
--- NOTE | 2019-05-21 07:35 | NUR ---
SERVICE DELIVERY CONSULTANT OPENING NOTES RECEIVED PT ON BED. SLEEPING. ON ROOM AIR NO RESPIRATORY DISTRESS NOTED. ON TELE MONITOR SR 74. IV ACCESS ON LAC G 18 WITH NS RUNNING @ 75 ML/HR, IV ACCESS PATENT AND INTACT. HEAD OF BED ELEVATED. SIDE RAILS UP. CALL LIGHT WITHIN REACH. BED ALARM ON. BED IN LOW AND LOCKED POSITION. WILL MONITOR PT CLOSELY.
[2019-05-21 07:41] LABS: IRON, SERUM 10 ug/dl (50-175); TOTAL IRON BINDING CAPACITY 90 ug/dl (250-450)
[2019-05-21 08:00] VITALS: BP 104/59
[2019-05-21 08:11] LABS: CHOLESTEROL 87 mg/dL (<200); FERRITIN 1806 ng/mL (8-388); HDL CHOLESTEROL 31 mg/dL (40-60); LDL 32 mg/dL (0-99); TRIGLYCERIDES 57 mg/dL (30-150)
--- NOTE | 2019-05-21 09:21 | NUR ---
INWEAVER NOTE IHSAN GENERAL ACTIVITIES THERAPIST AT BEDSIDE. LOW SCALE 12.
--- NOTE | 2019-05-21 09:21 | NUR ---
FINISHED CLOTH CHECKER NOTE CALLED HOUSEKEEPING AND PLACED ORDER FOR ISOFLEX BED. WOUND MANAGEMENT CARE PLAN ADDED.
--- NOTE | 2019-05-21 09:50 | NUR ---
WOUND CARE CONSULT: PT PRESENTS WITH MULTIPLE SKIN ISSUES AND WOUNDS PRESENT ON ADMISSION INCLUDING FOOT WOUNDS WITH FOUL PURULENT DRAINAGE, LEFT ELBOW SKIN TEAR, SACRAL SCARRING, RT ELBOW DRY ABRASION, REDNESS WITH EDEMA TO LEFT THIGH. DPM CONSULT REQUESTED FROM DR JOSEPH. RECOMMENDATIONS MADE FOR WOUND CARE OF LEFT ELBOW AND SKIN PROTECTION. DISCUSSED WITH NURSING STAFF. DEFER TO DPM FOR LOWER EXTREMITIES. PT IS INCONTINENT. PT NOTED TO BE VERY THIN AND BONY. DIETARY CONSULT IN PLACE. LOW AIRLOSS BED TO BE PLACED (DIMPLE ISOFLEX). WILL SEE PRN. HALL IN AGREEMENT WITH PLAN OF CARE. CURRENT LOW SCORE IS 12. Addendum: 05/21/19 at 0953 by IHSAN YORK WNDNU Amended: Links added.
--- NOTE | 2019-05-21 10:18 | NUR ---
MANUFACTURING TEAM MEMBER NOTE PT WAS SOAKED WITH URINE, CONDOM CATH APPLIED.
--- NOTE | 2019-05-21 10:25 | NUR ---
SUPERVISOR ADULT EDUCATION NOTE CALLED EVS AND PLACED ORDER FOR ISOFLEX MATTRESS.
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
[2019-05-21] MEDS: POTASSIUM CHLORIDE 20 MEQ TAB.PRT.SR PO SCH ×2 (10:48→12:11)
--- NOTE | 2019-05-21 11:07 | NUR ---
AERODYNAMICS TEACHER NOTE PT HAVE DIFFICULTY SWALLOWING. SWALLOW EVALV AND PUREE DIET ORDERED.
[2019-05-21 12:00] VITALS: BP_SYST 102; BP_SYST 80; BP_DIAS 54; BP_DIAS 76
[2019-05-21] MEDS ORDERED: VANCOMYCIN 0.75 GM in IV D5W 250 ML IV SCH (12:00)
--- NOTE | 2019-05-21 12:04 | NUR ---
CERTIFIED CAREGIVER NOTE PT HAS GRAM POSITIVE COCCI IN CHAIN. DR WISE MADE AWARE.
--- NOTE | 2019-05-21 12:05 | NUR ---
HEAD AND NECK SURGEON NOTE CALLED PHARMACY TO BRING VANCO BAG.
--- NOTE | 2019-05-21 13:20 | NUR ---
RYDER SAMANIEGO NOTE CALLED PHARMACY TO BRING THE VCANCO BAG. Addendum: 05/21/19 at 1559 by BAYLEE MARTINEZ RN PUT PT FEET UP AND HEAD DOWN.
--- NOTE | 2019-05-21 15:57 | NUR ---
TELE MS NOTE SHELIA BP 85/49. DR WISE PAGED.
[2019-05-21 16:00] VITALS: BP_SYST 85; BP_SYST 97; BP_DIAS 44; BP_DIAS 49; BP_DIAS 56
--- NOTE | 2019-05-21 16:25 | NUR ---
DATA NETWORK ARCHITECT NOTE IV BOLUS 1000 ML ORDERED. INCREASED NS RATE FROM 75 ML/HR TOO 100 ML/HR. ORDERS CARRIED OUT.
--- NOTE | 2019-05-21 16:49 | NUR ---
CARDROOM MANAGER NOTE CALLED PATIENT'S SISTER JESSE AT [phone] TO GET THE CONSENT FOR STANDING BLOOD TRANSFUSION AND WOUND DEBRIDEMENT ORDER. VOICE MESSAGE LEFT.
[2019-05-21] MEDS: LACTOBACILLUS RHAMNOSUS GG 1 EACH CAP.SPRINK PO SCH (17:40)
[2019-05-21] MEDS: VANCOMYCIN 0.75 GM in IV D5W 250 ML IV SCH ×2 (17:40→23:00)
[2019-05-21] MEDS: ENSURE ENLIVE CHOC 237 ML CAN PO SCH (17:41)
[2019-05-21] MEDS: IV NS 0.9% 1,000 ML IV PRN (17:50)
--- NOTE | 2019-05-21 19:37 | NUR ---
LINE RIDER NOTES RECEIVED PT ON BED. SLEEPING. ON ROOM AIR NO RESPIRATORY DISTRESS NOTED. ON TELE MONITOR SR 71. IV ACCESS ON LAC G 18 WITH NS RUNNING @ 100CC/HR, IV ACCESS PATENT AND INTACT. HEAD OF BED ELEVATED. SIDE RAILS UP. CALL LIGHT WITHIN REACH. BED ALARM ON. BED IN LOW AND LOCKED POSITION. WILL MONITOR PT CLOSELY.
[2019-05-21 20:00] VITALS: BP 100/58
[2019-05-21] MEDS: ENOXAPARIN SODIUM 40 MG/0.4 ML DISP.SYRIN SQ SCH (20:10)
--- NOTE | 2019-05-21 20:11 | NUR ---
GRINDER SETUP OPERATOR NOTES LOVENOX NON ADMIN, H/H TRENDING DOWN. WILL F/U IN AM FOR ORDER.
--- NOTE | 2019-05-21 20:11 | NUR ---
BRANCH OPERATIONS COORDINATOR CLOSING NOTE PT RESTING COMFORTABLY. NO SIGN OF ACUTE RESPIRATORY/CARDIAC DISTRESS OR SOB AT THIS TIME. ON TELE MONITOR SR HR 76. SAFETY MEASURES IN PLACE. BED LOCKED AND LOW, SIDE RAILS UPX3, BED ALARM ON. ALL NEEDS ATTENDANT. BLOOD PRESSURE IMPROVED. ENDORSED TO PM NURSE FOR CASSIE.
[2019-05-22] VITALS (11 sets, daily range): BP systolic 96–115; BP diastolic 50–72
[2019-05-22] MEDS: PIPERACILLIN /TAZOBACTAM 2.25 G in IV D5W 50 ML IV SCH ×4 (00:09→18:10)
--- NOTE | 2019-05-22 07:15 | NUR ---
CORE DRILLER HELPER NOTES NO ACUTE CHANGES NOTED DURING THE SHIFT. PROVIDED COMFORT AND SAFETY. WOUND CARE DONE. WILL ENDORSE TO THE AM NURSE FOR CONTINUITY OF CARE.
[2019-05-22 07:18] LABS: BASOPHILS # (AUTO) 0.1 /CMM (0.0-0.2); BASOPHILS % (AUTO) 0.4 % (0.0-2.0); EOSINOPHILS % (AUTO) 0.3 % (0.0-6.0); HEMATOCRIT 23 % (39-51); HEMOGLOBIN 7.2 g/dL (13.5-17.5); LYMPHOCYTES # (AUTO) 1.2 /CMM (0.8-4.8); LYMPHOCYTES % (AUTO) 8.2 % (20.0-44.0); MEAN CORPUSCULAR HGB CONC 32 g/dl (31.0-36.0); MEAN CORPUSCULAR VOLUME 84 fL (80-96); MONOCYTES # (AUTO) 0.7 /CMM (0.1-1.30); MONOCYTES % (AUTO) 4.7 % (2.0-12.0); NEUTROPHILS # (AUTO) 12.7 /CMM (1.8-8.9); NEUTROPHILS % (AUTO) 86.4 % (43.0-81.0); PLATELET COUNT (AUTO) 335 /CMM (150-450); RED BLOOD CELL COUNT(AUTO) 2.72 MIL/uL (4.5-6.0); WHITE BLOOD COUNT (AUTO) 14.7 K/uL (4.3-11.0)
[2019-05-22 07:30] LABS: CALCIUM, SERUM 6.7 mg/dL (8.5-10.1); CREATININE 0.6 mg/dL (0.6-1.3); MAGNESIUM 1.6 mg/dL (1.8-2.4); PHOSPHORUS 1.8 mg/dL (2.5-4.9)
--- NOTE | 2019-05-22 07:55 | NUR ---
EXTERNAL GRINDER TENDER NOTES RECEIVED PT ON BED.AWAKE , ALERT , ON ROOM AIR NO RESPIRATORY DISTRESS NOTED. ON TELE MONITOR SR HR 63 , WITH NS RUNNING @ 75 ML PER HOUR /HR, IV ACCESS PATENT AND INTACT ON LT HAND ,HEAD OF BED ELEVATED. SIDE RAILS UP. CALL LIGHT WITHIN REACH. BED ALARM ON. BED IN LOW AND LOCKED POSITION. WILL MONITOR PT CLOSELY.PLAN OF CARE DISCUSSED WITH PATIENT, WILL MONITOR
[2019-05-22] MEDS: DAKINS QUARTER STRENGTH (0.125%) 480 ML BOTTLE TOP SCH (08:30)
[2019-05-22] MEDS: LACTOBACILLUS RHAMNOSUS GG 1 EACH CAP.SPRINK PO SCH ×2 (08:30→16:35)
[2019-05-22] MEDS: HYDROGEL DRESSING 90 GM TUBE TP SCH (08:32)
--- NOTE | 2019-05-22 08:56 | NUR ---
ROUSTABOUT SUPERVISOR NOTE SEEN BY FOOT DOCTOR WOUND CARE ON BOTH FEE DONE, WILL GET CONSENT FOR DEBRIDEMENT
[2019-05-22] MEDS: ENSURE ENLIVE CHOC 237 ML CAN PO SCH ×3 (09:40→16:01)
--- NOTE | 2019-05-22 09:54 | NUR ---
DEVELOPMENTAL MATHEMATICS PROFESSOR NOTE SPOKE WITH DR ANIA BADILLO CARDIOLOGY FOR CLEARANCE FOR FOOT DEBRIDEMENT IN OR DR FARRELL FOOT DOCKTOR
[2019-05-22] MEDS ORDERED: POTASSIUM CHLORIDE 20 MEQ TAB.PRT.SR PO SCH (10:00)
[2019-05-22] MEDS: IV NS 0.9% 1,000 ML IV PRN (10:29)
[2019-05-22] MEDS: Magnesium 1GM/D5W 100ML PREMIX 100 ML IV SCH ×2 (11:26→12:20)
[2019-05-22] MEDS: CARVEDILOL 12.5 MG TABLET PO SCH ×2 (11:27→21:46)
[2019-05-22] MEDS: POTASSIUM CHLORIDE 20 MEQ TAB.PRT.SR PO SCH ×2 (11:27→12:20)
--- NOTE | 2019-05-22 12:30 | NUR ---
DIRECTOR OF DIGITAL PLATFORMS NOTE ST AT BEDSIDE OK TO START MECHANICAL SOFT DIET ALSO PER ALEX OWUSU OK TO TRANSFUSE 1 UNIT PRBC
--- NOTE | 2019-05-22 12:31 | NUR ---
LAST TRIMMER NOTE CONSENT FOR BLOOD TRANSDUCTION AND DEBRIDMENT BOTH FOOT SIGNED BY PATIENT, ALEX SAMANIEGO DNP AT BEDSIDE
[2019-05-22] MEDS: VANCOMYCIN 0.75 GM in IV D5W 250 ML IV SCH (13:25)
--- NOTE | 2019-05-22 13:31 | NUR ---
RYDER SAMANIEGO NOTE NEW HL ON LT UPPER ARM SOLITARIO 20 INSERTED WITH GOOD BLOOD RETURN Addendum: 05/22/19 at 1359 by HARI VARGAS RN CALLED BLOOD BANK BLOOD NOT READY YET
--- NOTE | 2019-05-22 15:14 | NUR ---
tele r note called x3 to pharmacy to bring Ferrlecit, spoke with jignesh,stated that will bring it , still not available
--- NOTE | 2019-05-22 15:18 | NUR ---
SIGHTER NOTE BLOOD TRANSFUSION IST UNIT PRBC STARTED AT 50 ML PER HOUR , NO ADVERSE RACTION NOTED AT THIS TIME WILL MONITOR
--- NOTE | 2019-05-22 15:55 | NUR ---
STOCK RECEIVER NOTE FERRLECIT STILL NOT AVAILABLE, NEED TO BE ADMINISTERED AT 1400 PHARMACY AWARE
[2019-05-22] MEDS: SOD FERRIC GLUC 125 MG in IV NS 0.9% 100 ML IV SCH (16:28)
--- NOTE | 2019-05-22 17:16 | NUR ---
television news video editor note Isoflex guillermina bed placed for skin management, cont on blood transfusion 1 unit prbc , not in distress
--- NOTE | 2019-05-22 18:22 | NUR ---
telephone quotation clerk note i st inst prbc completed, no adverse reaction noted , no sob noted ,having dinner ,able to eat self ,ate 25% of food call light within reach. keep clean dry .will cont to monitor closely
[2019-05-22] MEDS: ENOXAPARIN SODIUM 40 MG/0.4 ML DISP.SYRIN SQ SCH (21:58)
[2019-05-23] VITALS: BP 122/66
[2019-05-23] MEDS: VANCOMYCIN 0.75 GM in IV D5W 250 ML IV SCH ×3 (00:52→23:49)
[2019-05-23] MEDS: IV NS 0.9% 1,000 ML IV PRN ×2 (03:45→23:55)
[2019-05-23 04:00] VITALS: BP 137/73
[2019-05-23] MEDS: PIPERACILLIN /TAZOBACTAM 2.25 G in IV D5W 50 ML IV SCH ×6 (05:54→23:50)
[2019-05-23 06:40] LABS: BASOPHILS # (AUTO) 0.1 /CMM (0.0-0.2); BASOPHILS % (AUTO) 0.7 % (0.0-2.0); EOSINOPHILS % (AUTO) 0.5 % (0.0-6.0); HEMATOCRIT 26 % (39-51); HEMOGLOBIN 8.7 g/dL (13.5-17.5); LYMPHOCYTES # (AUTO) 1.2 /CMM (0.8-4.8); LYMPHOCYTES % (AUTO) 12.5 % (20.0-44.0); MEAN CORPUSCULAR HGB CONC 33 g/dl (31.0-36.0); MEAN CORPUSCULAR VOLUME 83 fL (80-96); MONOCYTES # (AUTO) 0.6 /CMM (0.1-1.30); MONOCYTES % (AUTO) 5.7 % (2.0-12.0); NEUTROPHILS % (AUTO) 80.6 % (43.0-81.0); PLATELET COUNT (AUTO) 381 /CMM (150-450); RED BLOOD CELL COUNT(AUTO) 3.11 MIL/uL (4.5-6.0); WHITE BLOOD COUNT (AUTO) 9.9 K/uL (4.3-11.0)
--- NOTE | 2019-05-23 06:41 | NUR ---
PATIENT REMAINS IN NO ACUTE DISTRESS IN BED. PATIENT DID NOT HAVE ANY SIGNIFICANT CHANGE IN CONDITION DURING SHIFT. ALL NEEDS MET, ALL ORDERS CARRIED OUT. WILL ENDORSE CARE TO AM RN FOR CONTINUITY OF CARE.
[2019-05-23 07:06] LABS: BILIRUBIN,TOTAL 0.5 mg/dL (0.2-1.0); CALCIUM, SERUM 7.6 mg/dL (8.5-10.1); CREATININE 0.6 mg/dL (0.6-1.3); MAGNESIUM 1.9 mg/dL (1.8-2.4); PHOSPHORUS 2.2 mg/dL (2.5-4.9); POTASSIUM 3.6 mmol/L (3.5-5.1)
--- NOTE | 2019-05-23 07:30 | NUR ---
TELE/RN OPENING NOTES RECEIVED PATIENT IN BED SLEEPING COMFORTABLY. EASILY AROUSABLE. NO PAIN OR ACUTE DISTRESS AT THIS TIME. RESPIRATION EVEN AND UNLABORED. SKIN IS DRY WARM TO TOUCH. PATIENT ON RA WITH O2 SAT OF 98%. CONTINUES ON TELE MONITOR SR HR 65'S. PATIENT NOTED WITH LEFT UPPER ARM #20G. INTACT AND PATENT. FLUSHING WELL. NO S/S OF INFECTION OR INFILTRATION. ALL NEEDS ANTICIPATED. CALL LIGHT WITHIN REACHED. PLAN OF CARE DISCUSSED. SAFETY MAINTAINED. BED LOCKED AND IN LOWEST POSITION. WILL CONTINUE TO MONITOR CLOSELY.
[2019-05-23 07:42] LABS: ALBUMIN 1.4 g/dL (3.4-5.0)
[2019-05-23 08:00] VITALS: BP 117/65
[2019-05-23] MEDS: ENSURE ENLIVE CHOC 237 ML CAN PO SCH ×3 (08:05→17:24)
[2019-05-23] MEDS: LACTOBACILLUS RHAMNOSUS GG 1 EACH CAP.SPRINK PO SCH ×2 (09:00→17:24)
[2019-05-23] MEDS: DAKINS QUARTER STRENGTH (0.125%) 480 ML BOTTLE TOP SCH (09:01)
[2019-05-23] MEDS: CARVEDILOL 12.5 MG TABLET PO SCH ×2 (09:01→22:30)
[2019-05-23] MEDS: HYDROGEL DRESSING 90 GM TUBE TP SCH (09:02)
[2019-05-23] MEDS: HYDROCODONE/APAP 5/325MG 1 EACH TABLET PO PRN ×2 (10:44→19:42)
[2019-05-23] MEDS ORDERED: K PHOS NEUTRAL 250 MG TABLET PO ONE (11:00)
[2019-05-23 12:00] VITALS: BP 112/66
[2019-05-23] MEDS: SOD FERRIC GLUC 125 MG in IV NS 0.9% 100 ML IV SCH (14:00)
--- NOTE | 2019-05-23 15:30 | NUR ---
TELE/RN NOTES PAGED RIKI WISE REGARDING THE ALBUMIN AND TOTAL PROTEIN RESULTS THAT WAS REPORTED BY THE LAB. RECEIVED A CALL BACK FROM RIKI WISE AND RELAYED THE LAB RESULTS. NO NEW ORDERS AT TIMES TIME. WILL CONTINUE TO MONITOR CLOSELY.
[2019-05-23 16:00] VITALS: BP 115/71
--- NOTE | 2019-05-23 19:34 | NUR ---
TELE/RN CLOSING NOTES PATIENT CONTINUES TO REMAIN IN STABLE CONDITION THROUGHOUT THE SHIFT. PROVIDED COMFORT AND SAFETY. CONTINUES ON TELE MONITOR SR HR 70'S. PATIENT NOTED WITH LEFT UPPER ARM #20G. INTACT AND PATENT. FLUSHING WELL. NO S/S OF INFECTION OR INFILTRATION. ALL NEEDS ANTICIPATED. CALL LIGHT WITHIN REACHED. PLAN OF CARE DISCUSSED. SAFETY MAINTAINED. BED LOCKED AND IN LOWEST POSITION. WILL CONTINUE TO MONITOR CLOSELY. ENDORSED TO PM NURSE FOR CASSIE.
[2019-05-23 20:00] VITALS: BP 141/78
[2019-05-23] MEDS: ENOXAPARIN SODIUM 40 MG/0.4 ML DISP.SYRIN SQ SCH (22:32)
[2019-05-23] MEDS: ZOLPIDEM TARTRATE 5 MG TABLET PO PRN (22:41)
[2019-05-24] VITALS: BP 129/81
[2019-05-24 04:00] VITALS: BP_SYST 129; BP_SYST 150; BP_DIAS 77; BP_DIAS 81
[2019-05-24] MEDS: HYDROCODONE/APAP 5/325MG 1 EACH TABLET PO PRN ×3 (05:30→17:56)
[2019-05-24] MEDS: PIPERACILLIN /TAZOBACTAM 2.25 G in IV D5W 50 ML IV SCH ×3 (05:31→17:00)
--- NOTE | 2019-05-24 07:30 | NUR ---
TELE/RN OPENING NOTES RECEIVED PATIENT IN BED AWAKE, ALERT AND ABLE TO MAKE NEEDS KNOWN. NO PAIN OR ACUTE DISTRESS AT THIS TIME. RESPIRATION EVEN AND UNLABORED. SKIN IS DRY WARM TO TOUCH. CONTINUES ON TELE MONITOR SR HR 70'S. PATIENT NOTED WITH LEFT UPPER ARM #20G. INTACT AND PATENT. FLUSHING WELL. NO S/S OF INFECTION OR INFILTRATION. ALL NEEDS ANTICIPATED. CALL LIGHT WITHIN REACHED. PLAN OF CARE DISCUSSED. SAFETY MAINTAINED. BED LOCKED AND IN LOWEST POSITION. WILL CONTINUE TO MONITOR CLOSELY.
[2019-05-24 07:51] LABS: BASOPHILS % (AUTO) 0.2 % (0.0-2.0); EOSINOPHILS % (AUTO) 0.7 % (0.0-6.0); HEMATOCRIT 27 % (39-51); LYMPHOCYTES # (AUTO) 1.1 /CMM (0.8-4.8); LYMPHOCYTES % (AUTO) 12.9 % (20.0-44.0); MEAN CORPUSCULAR HGB CONC 33 g/dl (31.0-36.0); MEAN CORPUSCULAR VOLUME 84 fL (80-96); MONOCYTES # (AUTO) 0.6 /CMM (0.1-1.30); NEUTROPHILS # (AUTO) 6.6 /CMM (1.8-8.9); NEUTROPHILS % (AUTO) 79.2 % (43.0-81.0); PLATELET COUNT (AUTO) 404 /CMM (150-450); RED BLOOD CELL COUNT(AUTO) 3.22 MIL/uL (4.5-6.0); WHITE BLOOD COUNT (AUTO) 8.3 K/uL (4.3-11.0)
[2019-05-24 07:59] LABS: CALCIUM, SERUM 7.5 mg/dL (8.5-10.1); CREATININE 0.6 mg/dL (0.6-1.3); MAGNESIUM 1.8 mg/dL (1.8-2.4); PHOSPHORUS 2.5 mg/dL (2.5-4.9); POTASSIUM 3.2 mmol/L (3.5-5.1)
[2019-05-24 08:00] VITALS: BP 127/71
[2019-05-24] MEDS: ENSURE ENLIVE CHOC 237 ML CAN PO SCH ×3 (08:12→17:00)
[2019-05-24] MEDS: DAKINS QUARTER STRENGTH (0.125%) 480 ML BOTTLE TOP SCH (08:45)
[2019-05-24] MEDS: HYDROGEL DRESSING 90 GM TUBE TP SCH (08:45)
[2019-05-24] MEDS: LACTOBACILLUS RHAMNOSUS GG 1 EACH CAP.SPRINK PO SCH ×2 (08:45→16:57)
[2019-05-24] MEDS: CARVEDILOL 12.5 MG TABLET PO SCH ×2 (08:46→21:26)
[2019-05-24] MEDS ORDERED: IV NS 0.9% 250 ML IV ONE (09:55)
[2019-05-24] MEDS ORDERED: CT SWABBABLE VALVE TRANS SET 1 EA INFUS.SET MC ONE (09:55)
[2019-05-24] MEDS ORDERED: IOHEXOL-350 100 ML VIAL IV ONE (09:55)
[2019-05-24] MEDS ORDERED: POTASSIUM CHLORIDE 20 MEQ POWDER PACKET NG SCH (10:00)
[2019-05-24] MEDS: POTASSIUM CHLORIDE 20 MEQ POWDER PACKET NG SCH ×2 (10:39→11:02)
[2019-05-24] MEDS: VANCOMYCIN 0.75 GM in IV D5W 250 ML IV SCH (12:27)
[2019-05-24] MEDS: SOD FERRIC GLUC 125 MG in IV NS 0.9% 100 ML IV SCH (15:00)
[2019-05-24 16:00] VITALS: BP_SYST 123; BP_SYST 125; BP_DIAS 75
[2019-05-24] MEDS: CEFTRIAXONE 2 G in IV D5W 100 ML IV SCH (18:03)
--- NOTE | 2019-05-24 19:00 | NUR ---
TELE/RN CLOSING NOTES PATIENT CONTINUES TO REMAIN IN STABLE CONDITION THROUGHOUT THE SHIFT. PROVIDED COMFORT AND SAFETY. PATIENT NOTED WITH LEFT UPPER ARM #20G AND LFA #18G. INTACT AND PATENT. FLUSHING WELL. NO S/S OF INFECTION OR INFILTRATION. ALL NEEDS ANTICIPATED. CALL LIGHT WITHIN REACHED. PLAN OF CARE DISCUSSED. SAFETY MAINTAINED. BED LOCKED AND IN LOWEST POSITION. WILL CONTINUE TO MONITOR CLOSELY. ENDORSED TO PM NURSE FOR CASSIE.
--- NOTE | 2019-05-24 19:46 | NUR ---
MS RN RECEIVE PT IN BED PT AWAKE A/O X 2-3, STABLE AND NOT IN DISTRESS. NO SOB. NO C/O OF PAIN. WILL CONT TO MTR
[2019-05-24 20:00] VITALS: BP 147/77
[2019-05-24] MEDS: IV NS 0.9% 1,000 ML IV PRN (21:25)
[2019-05-24] MEDS: ZOLPIDEM TARTRATE 5 MG TABLET PO PRN (21:26)
[2019-05-24] MEDS: ENOXAPARIN SODIUM 40 MG/0.4 ML DISP.SYRIN SQ SCH (21:27)
[2019-05-25 04:00] VITALS: BP 139/68
--- NOTE | 2019-05-25 06:46 | NUR ---
MS RN ASLEEP AND EASILY AWAKEN, NO COMPLAIN OF PAIN, NO S/S OF DISTRESS, KEPT CLEAN AND DRY AND COMFORTABLE. SLEPT WELL. NEEDS ATTENDED AND ANTICIPATED. TX ORDERED. WOUND CARE ORDERED. AM CARE RENDERED. OFFLOAD HEELS AND ELBOWS. SAFETY MEASURES AT ALL TIMES. ENDORSE TO THE NEXT SHIFT.
[2019-05-25 07:23] LABS: BASOPHILS % (AUTO) 0.3 % (0.0-2.0); EOSINOPHILS % (AUTO) 1.2 % (0.0-6.0); HEMATOCRIT 29 % (39-51); HEMOGLOBIN 9.6 g/dL (13.5-17.5); LYMPHOCYTES # (AUTO) 0.9 /CMM (0.8-4.8); LYMPHOCYTES % (AUTO) 10.4 % (20.0-44.0); MEAN CORPUSCULAR HGB CONC 33 g/dl (31.0-36.0); MEAN CORPUSCULAR VOLUME 85 fL (80-96); MONOCYTES # (AUTO) 0.7 /CMM (0.1-1.30); MONOCYTES % (AUTO) 7.8 % (2.0-12.0); NEUTROPHILS # (AUTO) 7.1 /CMM (1.8-8.9); NEUTROPHILS % (AUTO) 80.3 % (43.0-81.0); PLATELET COUNT (AUTO) 390 /CMM (150-450); RED BLOOD CELL COUNT(AUTO) 3.44 MIL/uL (4.5-6.0); WHITE BLOOD COUNT (AUTO) 8.8 K/uL (4.3-11.0)
--- NOTE | 2019-05-25 07:44 | NUR ---
TELE/RN OPENING NOTES RECEIVED PATIENT IN BED AWAKE, ALERT AND ABLE TO MAKE NEEDS KNOWN. C\O PAIN BOTH FEET 7\10 AT THIS TIME. RESPIRATION EVEN AND UNLABORED. SKIN IS DRY WARM TO TOUCH. CONTINUES ON TELE MONITOR SR , ON IVF ORDERED , WITH LEFT UPPER ARM #20G. INTACT AND PATENT. FLUSHING WELL. NO S/S OF INFECTION OR INFILTRATION. ALL NEEDS ANTICIPATED. CALL LIGHT WITHIN REACHED. PLAN OF CARE DISCUSSED. SAFETY MAINTAINED. BED LOCKED AND IN LOWEST POSITION. WILL CONTINUE TO MONITOR CLOSELY.
[2019-05-25 08:00] VITALS: BP 167/79
[2019-05-25] MEDS: CARVEDILOL 12.5 MG TABLET PO SCH ×2 (08:25→20:44)
[2019-05-25] MEDS: LACTOBACILLUS RHAMNOSUS GG 1 EACH CAP.SPRINK PO SCH ×2 (08:25→16:27)
[2019-05-25] MEDS: HYDROCODONE/APAP 5/325MG 1 EACH TABLET PO PRN ×3 (08:25→17:14)
[2019-05-25] MEDS: ENSURE ENLIVE CHOC 237 ML CAN PO SCH ×3 (08:28→16:27)
[2019-05-25] MEDS: HYDROGEL DRESSING 90 GM TUBE TP SCH (08:29)
[2019-05-25] MEDS: DAKINS QUARTER STRENGTH (0.125%) 480 ML BOTTLE TOP SCH (08:29)
[2019-05-25 08:46] LABS: BILIRUBIN,TOTAL 0.3 mg/dL (0.2-1.0); CALCIUM, SERUM 7.3 mg/dL (8.5-10.1); CREATININE 0.5 mg/dL (0.6-1.3); MAGNESIUM 1.5 mg/dL (1.8-2.4); PHOSPHORUS 2.3 mg/dL (2.5-4.9); POTASSIUM 2.9 mmol/L (3.5-5.1); TOTAL PROTEIN, SERUM 6.2 g/dL (6.4-8.2)
[2019-05-25 08:54] LABS: ALBUMIN 1.4 g/dL (3.4-5.0)
[2019-05-25] MEDS ORDERED: K PHOS NEUTRAL 250 MG TABLET PO ONE (10:30)
[2019-05-25] MEDS: POTASSIUM CHLORIDE 20 MEQ TAB.PRT.SR PO SCH ×3 (10:30→12:50)
[2019-05-25] MEDS: Magnesium 1GM/D5W 100ML PREMIX 100 ML IV SCH ×2 (10:31→11:29)
--- NOTE | 2019-05-25 12:00 | NUR ---
MS RN NOTE FAMILY AT BEDSIDE DIETARY CALLED TO ADJUST ENSURE FLAVOR
[2019-05-25] MEDS: SOD FERRIC GLUC 125 MG in IV NS 0.9% 100 ML IV SCH (14:51)
[2019-05-25] MEDS: IV NS 0.9% 1,000 ML IV PRN (14:55)
--- NOTE | 2019-05-25 15:20 | NUR ---
MS RN NOTE PER ALEX OWUSU OK TO PLACE CONDOM CATH
[2019-05-25 16:00] VITALS: BP 130/69
[2019-05-25] MEDS: CEFTRIAXONE 2 G in IV D5W 100 ML IV SCH (17:07)
--- NOTE | 2019-05-25 17:54 | NUR ---
WHEAT FARMER SPOKE WITH HARIS OWUSU NOTIFIED THAT PATIENT WAS ON METHADONE ASKED TO CALL CLINIC TO VERIFY DOSE, WILL F\U , NOTIFIED THAT PATIENT ON NORCO Q4 HOUR NEEDED SWALLOW EVAL ORDERED DUE TO PATIENT STATED THAT ITS HARD TO SWALLOW, PER ALEX FOOT SURGERY WILL BE DONE ON SUNDAY , KEEP NPO AFTER MID NIGHT SUNDAY
--- NOTE | 2019-05-25 18:02 | NUR ---
EXOTIC DANCER NOTE CALLED TO MEDICAL CLINIC TO VERIFY DOSE OF METHADONE BUT ITS CLOSED NOW WILL F\U TOMORROW PHONE [phone]
--- NOTE | 2019-05-25 18:12 | NUR ---
MS RN NOTE 2DECHO DONE ORDERED KEEP CLEAN DRY,ALL NEEDS ATTENDED
[2019-05-25] MEDS: GABAPENTIN 300 MG CAPSULE PO SCH (18:26)
[2019-05-25] MEDS ORDERED: METHADONE HCL 10 MG TABLET PO SCH (18:30)
--- NOTE | 2019-05-25 18:35 | NUR ---
MS RN NOTE SPOKE WITH DR TSAI PAIN MANAGEMENT ABOUT METHADONE DOSE , NOTIFIED THAT NORCO WAS GIVEN AT 1700 STATED OK TO GIVE AT 2000 KIANNA ,SPOKE WITH [facility] PHARMACIST STATED THAT WILL CHANGE ORDER FOR NOW BUT STILL NEED TO VERIFY DOSE WITH MEDICAL CLINIC, WILL F\U
[2019-05-25 20:00] VITALS: BP 114/65
[2019-05-25] MEDS ORDERED: METHADONE HCL 10 MG TABLET PO ONE (20:00)
[2019-05-25] MEDS: ENOXAPARIN SODIUM 40 MG/0.4 ML DISP.SYRIN SQ SCH ×2 (21:00→23:24)
--- NOTE | 2019-05-25 21:05 | NUR ---
RN NOTES, LOVENOX NOT ADMINISTERED, PATIENT WILL HAVE DEBRIDEMENT FOR BILATERAL FEET WOUND TOMORROW.
--- NOTE | 2019-05-25 23:25 | NUR ---
RN NOTES, LOVENOX ADMINISTERED, PER ALEX DEBRIDEMENT WILL BE ON SUNDAY.
[2019-05-26 04:00] VITALS: BP 149/82
[2019-05-26] MEDS: IV NS 0.9% 1,000 ML IV PRN ×2 (04:14→18:37)
[2019-05-26 06:19] LABS: BASOPHILS % (AUTO) 0.5 % (0.0-2.0); EOSINOPHILS % (AUTO) 1.7 % (0.0-6.0); HEMATOCRIT 31 % (39-51); LYMPHOCYTES # (AUTO) 1.2 /CMM (0.8-4.8); LYMPHOCYTES % (AUTO) 13.1 % (20.0-44.0); MEAN CORPUSCULAR HGB CONC 32 g/dl (31.0-36.0); MEAN CORPUSCULAR VOLUME 84 fL (80-96); MONOCYTES % (AUTO) 8.2 % (2.0-12.0); NEUTROPHILS # (AUTO) 6.9 /CMM (1.8-8.9); NEUTROPHILS % (AUTO) 76.5 % (43.0-81.0); PLATELET COUNT (AUTO) 401 /CMM (150-450); RED BLOOD CELL COUNT(AUTO) 3.66 MIL/uL (4.5-6.0)
[2019-05-26 06:20] LABS: MONOCYTES # (AUTO) 0.7 /CMM (0.1-1.30)
[2019-05-26 06:54] LABS: ALBUMIN 1.5 g/dL (3.4-5.0); BILIRUBIN,TOTAL 0.3 mg/dL (0.2-1.0); CALCIUM, SERUM 7.5 mg/dL (8.5-10.1); CREATININE 0.5 mg/dL (0.6-1.3); MAGNESIUM 1.7 mg/dL (1.8-2.4); PHOSPHORUS 2.2 mg/dL (2.5-4.9); POTASSIUM 3.1 mmol/L (3.5-5.1); TOTAL PROTEIN, SERUM 6.4 g/dL (6.4-8.2)
--- NOTE | 2019-05-26 07:00 | NUR ---
MS RN NOTES, PATIENT IN BED SLEEPING AT THIS TIME, BUT AROUSES TO VERBAL STIMULI, AT ROOM AIR BREATHING EVEN AND UNLABORED, NO SOB/ACUTE DISTRESS OR DISCOMFORT NOTED, LFA IV SITE PATENT AND INTACT, IV FLUID INFUSING WELL AND PATIENT TOLERATED WELL, WOUND TREATMENT DONE ORDERED, ALL SAFETY MEASURES AND NEEDS RENDERED, BED LOCKED AND LOWEST POSITION , CALL LIGHT WITHIN REACH, ENDORSE CONTINUITY OF CARE TO ONCOMING NURSE.
[2019-05-26 08:00] VITALS: BP 130/62
--- NOTE | 2019-05-26 08:11 | NUR ---
MS RN NOTES RECEIVED PT SITTING IN THE BED HAVING BREAKFAST. A/OX4 , NO SOB NOTED AT THIS TIME. IV PATENT AND NS IS RUNNING RADHA 100ML/H. BED LOCKED AT THE LOWEST POSITION SIDE RAILS UP CALL LIGHT WITHIN REACH. WILL CONTINUE TO MONITOR.
[2019-05-26] MEDS ORDERED: METHADONE HCL (40MG) 40 MG TABLET.SOL PO SCH (09:00)
[2019-05-26] MEDS: CARVEDILOL 12.5 MG TABLET PO SCH ×2 (09:00→21:00)
[2019-05-26] MEDS: GABAPENTIN 300 MG CAPSULE PO SCH ×3 (09:00→17:00)
[2019-05-26] MEDS ORDERED: NEUTRA PHOS 1 POWD.PACKET PO ONE ×2 (10:00→17:00)
[2019-05-26] MEDS: METHADONE HCL 10 MG TABLET PO SCH (11:13)
[2019-05-26] MEDS: ENSURE ENLIVE CHOC 237 ML CAN PO SCH ×3 (11:15→17:17)
[2019-05-26] MEDS: LACTOBACILLUS RHAMNOSUS GG 1 EACH CAP.SPRINK PO SCH ×2 (11:17→17:16)
[2019-05-26] MEDS: DAKINS QUARTER STRENGTH (0.125%) 480 ML BOTTLE TOP SCH (11:18)
[2019-05-26] MEDS: HYDROGEL DRESSING 90 GM TUBE TP SCH (11:19)
[2019-05-26] MEDS: POTASSIUM CHLORIDE 20 MEQ POWDER PACKET NG SCH ×2 (11:20→11:29)
--- NOTE | 2019-05-26 11:26 | NUR ---
MS RN NOTES PT REFUSED THE GABAPENTIN AND CARVEDILOL. EXPLAINED THE INDICATION AND SIDE EFFECTS OF THE MEDICATION AND THE CONSEQUANCES OF NOT HAVING THE MEDICATION TO PT.
[2019-05-26] MEDS: POTASSIUM CL. PREMIX PERIPHER. 50 ML IV SCH ×6 (11:46→17:09)
[2019-05-26] MEDS: Magnesium 1GM/D5W 100ML PREMIX 100 ML IV SCH ×6 (12:00→19:05)
--- NOTE | 2019-05-26 14:04 | NUR ---
ms rn notes pt refused carvedilol and wasted in waste bin.
[2019-05-26] MEDS: SOD FERRIC GLUC 125 MG in IV NS 0.9% 100 ML IV SCH (15:08)
[2019-05-26 16:00] VITALS: BP 126/70
[2019-05-26] MEDS: CEFTRIAXONE 2 G in IV D5W 100 ML IV SCH (18:33)
--- NOTE | 2019-05-26 19:30 | NUR ---
MS RN NOTES PT IN BED SITTING A/OX4. NO SOB OR DISCOMFORT NOTED AT THIS TIME. ATB IS RUNNING AT LEFT ARM. PT COMPLAINED OF RADHA IV SITE PAIN AND REMOVED. ALL NEEDS ATTENDED. SAFETY MEASURES IMPLEMENTED BED AT THE LOWEST POSITION. CALL LIGHT WITHIN CLOSE REACH.REPORT GIVEN TO GREASE MAN NURSE FOR CASSIE.
--- NOTE | 2019-05-26 19:30 | NUR ---
MS RN NOTE: RECEIVED PT ON BED ALERT AND ORIENTED X3. ABLE TO MAKE NEEDS KNOWN. NO ACUTE DISTRESS NOTED. COMPLAINTS OF GENERALIZED PAIN 8/10, PRN PAIN MEDS WILL BE GIVEN. ON ROOM AIR, BREATHING EVEN AND UNLABORED WITH NORMAL RESPIRATION. IV ON LEFT FOREARM #20 INTACT AND PATENT, IVF INFUSING WELL. KEPT CLEAN, DRY AND COMFORTABLE. CALL LIGHT PLACED WITHIN REACH. WILL CONTINUE TO MONITOR.
--- NOTE | 2019-05-26 19:35 | NUR ---
MS RN NOTES POTASSIUM 200ML AND MAGNESIUM 400 ML IV ADMINISTRATED. CALLED PHARMACY FOR REMAINING IV BAGS. POTASSIUM 200ML AND MAGNESIUM 400 ML IV ADMINISTRATED.
[2019-05-26] MEDS: HYDROCODONE/APAP 5/325MG 1 EACH TABLET PO PRN (19:58)
[2019-05-26 20:00] VITALS: BP 147/73
--- NOTE | 2019-05-26 21:00 | NUR ---
MS RN NOTE: CARVEDILOL DUE AT 2100 NOT GIVEN, PT REFUSED. PER PT, "IT MAKES ME DIZZY". EXPLAINED RISKS AND BENEFITS BUT PT STILL REFUSED. WILL CONTINUE TO MONITOR PT.
[2019-05-26] MEDS: ENOXAPARIN SODIUM 40 MG/0.4 ML DISP.SYRIN SQ SCH (21:04)
--- NOTE | 2019-05-26 21:15 | NUR ---
MS RN NOTE: LOVENOX DUE AT [address] POLO, PER MD PROCEDURE WILL BE DONE ON SUNDAY (05/29).
[2019-05-27] VITALS: BP 147/73
[2019-05-27 04:00] VITALS: BP 144/75
[2019-05-27] MEDS: IV NS 0.9% 1,000 ML IV PRN ×2 (05:18→21:54)
--- NOTE | 2019-05-27 06:38 | NUR ---
MS RN NOTE: NO CHANGES NOTED THROUGHOUT THE SHIFT. NO COMPLAINTS OF PAIN OR DISCOMFORT. ON ROOM AIR, NO SOB NOTED. IV ON LEFT FOREARM #20 INTACT AND PATENT, FLUSHING WELL. PT REFUSED BED BATH, PER PT "I'M DRY. I DON'T NEED IT RIGHT NOW". EXPLAINED IMPORTANCE OF PROPER HYGIENE, BUT PT STILL REFUSED TO BE CLEANED. CHARGE NURSE MADE AWARE. CALL LIGHT PLACED WITHIN REACH. SAEFTY AND FALL PRECAUTIONS OBSERVED AND MAINTAINED. ALL NEEDS ATTENDED. WILL ENDORSE TO DAY SHIFT RN FOR CONTINUITY OF CARE
--- NOTE | 2019-05-27 07:10 | NUR ---
MS RN OPENING NOTE: RECEIVED REPORT AT BEDSIDE, PT ALERT AND ORIENTED X3. ABLE TO MAKE NEEDS KNOWN. ON ROOM AIR, BREATHING EVEN AND UNLABORED WITH NORMAL RESPIRATION. IV ON LEFT FOREARM #20 INTACT AND PATENT, IVF INFUSING WELL. BED LOW ANL LOCKED, SIDE RAILS UPX3, BED ALARM ON, CALL LIGHT PLACED WITHIN REACH. WILL CONTINUE TO MONITOR.
[2019-05-27 07:33] LABS: BASOPHILS # (AUTO) 0.1 /CMM (0.0-0.2); BASOPHILS % (AUTO) 0.7 % (0.0-2.0); EOSINOPHILS % (AUTO) 2.8 % (0.0-6.0); HEMATOCRIT 30 % (39-51); HEMOGLOBIN 9.8 g/dL (13.5-17.5); LYMPHOCYTES # (AUTO) 1.2 /CMM (0.8-4.8); LYMPHOCYTES % (AUTO) 14.8 % (20.0-44.0); MEAN CORPUSCULAR HGB CONC 33 g/dl (31.0-36.0); MEAN CORPUSCULAR VOLUME 84 fL (80-96); MONOCYTES # (AUTO) 0.7 /CMM (0.1-1.30); MONOCYTES % (AUTO) 8.7 % (2.0-12.0); NEUTROPHILS # (AUTO) 5.9 /CMM (1.8-8.9); PLATELET COUNT (AUTO) 386 /CMM (150-450); RED BLOOD CELL COUNT(AUTO) 3.53 MIL/uL (4.5-6.0); WHITE BLOOD COUNT (AUTO) 8.1 K/uL (4.3-11.0)
[2019-05-27 08:00] VITALS: BP 160/79
[2019-05-27 08:15] LABS: CREATININE 0.4 mg/dL (0.6-1.3); MAGNESIUM 1.9 mg/dL (1.8-2.4); PHOSPHORUS 2.2 mg/dL (2.5-4.9); POTASSIUM 3.4 mmol/L (3.5-5.1)
[2019-05-27 08:20] LABS: CALCIUM, SERUM 7.8 mg/dL (8.5-10.1)
[2019-05-27] MEDS: METHADONE HCL 10 MG TABLET PO SCH (08:36)
[2019-05-27] MEDS: LACTOBACILLUS RHAMNOSUS GG 1 EACH CAP.SPRINK PO SCH ×2 (08:36→17:35)
[2019-05-27] MEDS: CARVEDILOL 12.5 MG TABLET PO SCH ×2 (08:37→21:02)
[2019-05-27] MEDS: GABAPENTIN 300 MG CAPSULE PO SCH ×3 (08:37→17:35)
[2019-05-27] MEDS: ENSURE ENLIVE CHOC 237 ML CAN PO SCH ×2 (08:37→12:02)
[2019-05-27] MEDS: HYDROGEL DRESSING 90 GM TUBE TP SCH (08:38)
[2019-05-27] MEDS: DAKINS QUARTER STRENGTH (0.125%) 480 ML BOTTLE TOP SCH (08:38)
[2019-05-27] MEDS ORDERED: POTASSIUM CHLORIDE 20 MEQ TAB.PRT.SR PO SCH (11:00)
[2019-05-27] MEDS ORDERED: K PHOS NEUTRAL 250 MG TABLET PO ONE (11:30)
[2019-05-27] MEDS ORDERED: POTASSIUM PHOSPHATE MM 15 MMOL in IV D5W 250 ML IV SCH (11:30)
[2019-05-27] MEDS: POTASSIUM PHOSPHATE MM 7.5 MMOL in IV D5W 100 ML IV SCH ×2 (12:48→14:43)
[2019-05-27 16:00] VITALS: BP 145/75
[2019-05-27] MEDS: PROSOURCE / PROSTAT (PYXIS) 30 ML UDC GT SCH (17:35)
[2019-05-27] MEDS: CEFTRIAXONE 2 G in IV D5W 100 ML IV SCH (17:50)
--- NOTE | 2019-05-27 19:05 | NUR ---
MS RN CLOSING NOTE: NO CHANGES NOTED THROUGHOUT THE SHIFT. ON ROOM AIR, NO SOB NOTED. ALL NEEDS ATTENDANT. NO COMPLAIN OF PAIN. SAFETY AND FALL PRECAUTIONS OBSERVED AND MAINTAINED. BED LOCKED AND LOW, BED ALARM ON, SIDE RAILS UPX3, CALL LIGHT PLACED WITHIN REACH, HOB ELEVATED. WILL ENDORSE TO PM SHIFT RN FOR CONTINUITY OF CARE.
[2019-05-27 20:00] VITALS: BP 165/79
[2019-05-27] MEDS: ENOXAPARIN SODIUM 40 MG/0.4 ML DISP.SYRIN SQ SCH (21:02)
[2019-05-27 22:00] VITALS: BP 150/74
[2019-05-28 04:00] VITALS: BP 142/62
--- NOTE | 2019-05-28 06:45 | NUR ---
MS RN NOTE: NO CHANGES NOTED THROUGHOUT THE SHIFT. NO COMPLAINTS OF PAIN OR DISCOMFORT. ON ROOM AIR, NO SOB NOTED. IV ON LEFT FOREARM #20 INTACT AND PATENT, IVF INFUSING WELL. CALL LIGHT PLACED WITHIN REACH. SAEFTY AND FALL PRECAUTIONS OBSERVED AND MAINTAINED. ALL NEEDS ATTENDED. WILL ENDORSE TO DAY SHIFT RN FOR CONTINUITY OF CARE
[2019-05-28 07:46] LABS: BASOPHILS # (AUTO) 0.1 /CMM (0.0-0.2); BASOPHILS % (AUTO) 0.9 % (0.0-2.0); EOSINOPHILS % (AUTO) 2.5 % (0.0-6.0); HEMATOCRIT 29 % (39-51); HEMOGLOBIN 9.5 g/dL (13.5-17.5); LYMPHOCYTES # (AUTO) 1.3 /CMM (0.8-4.8); LYMPHOCYTES % (AUTO) 15.5 % (20.0-44.0); MEAN CORPUSCULAR HGB CONC 33 g/dl (31.0-36.0); MEAN CORPUSCULAR VOLUME 85 fL (80-96); MONOCYTES # (AUTO) 0.8 /CMM (0.1-1.30); MONOCYTES % (AUTO) 9.5 % (2.0-12.0); NEUTROPHILS # (AUTO) 6.2 /CMM (1.8-8.9); NEUTROPHILS % (AUTO) 71.6 % (43.0-81.0); PLATELET COUNT (AUTO) 341 /CMM (150-450); RED BLOOD CELL COUNT(AUTO) 3.38 MIL/uL (4.5-6.0); WHITE BLOOD COUNT (AUTO) 8.7 K/uL (4.3-11.0)
[2019-05-28 08:00] VITALS: BP 150/89
[2019-05-28 08:31] LABS: CALCIUM, SERUM 7.7 mg/dL (8.5-10.1); CREATININE 0.5 mg/dL (0.6-1.3); MAGNESIUM 1.5 mg/dL (1.8-2.4); PHOSPHORUS 2.4 mg/dL (2.5-4.9); POTASSIUM 3.8 mmol/L (3.5-5.1)
[2019-05-28] MEDS: LACTOBACILLUS RHAMNOSUS GG 1 EACH CAP.SPRINK PO SCH ×2 (08:53→18:20)
[2019-05-28] MEDS: METHADONE HCL 10 MG TABLET PO SCH (08:53)
[2019-05-28] MEDS: CARVEDILOL 12.5 MG TABLET PO SCH ×3 (08:53→21:53)
[2019-05-28] MEDS: PROSOURCE / PROSTAT (PYXIS) 30 ML UDC GT SCH ×3 (08:53→18:21)
[2019-05-28] MEDS: GABAPENTIN 300 MG CAPSULE PO SCH ×4 (08:53→17:00)
[2019-05-28] MEDS: DAKINS QUARTER STRENGTH (0.125%) 480 ML BOTTLE TOP SCH (09:02)
[2019-05-28] MEDS: HYDROGEL DRESSING 90 GM TUBE TP SCH (09:03)
[2019-05-28 10:27] LABS: EOSINOPHILS % (MANUAL) 2 % (0-4); LYMPHOCYTES % (MANUAL) 15 % (16-48); MONOCYTES % (MANUAL) 6 % (0-11.0); NEUTROPHILS % (MANUAL) 77 (42-76)
[2019-05-28] MEDS: Magnesium 1GM/D5W 100ML PREMIX 100 ML IV SCH ×2 (11:42→12:39)
[2019-05-28] MEDS: IV NS 0.9% 1,000 ML IV PRN (11:43)
[2019-05-28] MEDS ORDERED: Magnesium 1GM/D5W 100ML PREMIX 100 ML IV SCH (12:30)
[2019-05-28] MEDS ORDERED: NEUTRA PHOS 1 POWD.PACKET PO ONE (13:30)
[2019-05-28 16:00] VITALS: BP 130/78
--- NOTE | 2019-05-28 18:00 | NUR ---
MS RN CLOSING PATIENT A/OX4, ROOM AIR, NO RESPIRATORY DISTRESS NOTED. EATS WELL. CONDOM CATH ATTACHED AND DRAINING. IVF INFUSING ORDERED. WOUND CARE COMPLETED. NO SIGNIFICANT CHANGES THROUGHOUT SHIFT NOTED. CONSENT FOR DEBRIDEMENT PLACED IN CHART. NPO STATUS AFTER MIDNIGHT TONIGHT ENDORSED TO NOC ADEN CACERES
[2019-05-28] MEDS: CEFTRIAXONE 2 G in IV D5W 100 ML IV SCH (18:18)
[2019-05-28] MEDS: HYDROCODONE/APAP 5/325MG 1 EACH TABLET PO PRN (18:21)
[2019-05-28 20:00] VITALS: BP 142/80
[2019-05-28] MEDS: ENOXAPARIN SODIUM 40 MG/0.4 ML DISP.SYRIN SQ SCH (21:53)
--- NOTE | 2019-05-28 22:03 | NUR ---
metoprolol refused. patient refused carvedilol. patient states, "I don't want to take that. it makes me a bit dizzy." patient informed athat his bp or hr might not be as well controlled . patient verbalized understanding but still refusing.
[2019-05-29] MEDS: HYDROCODONE/APAP 5/325MG 1 EACH TABLET PO PRN ×2 (00:29→23:34)
[2019-05-29] MEDS: IV NS 0.9% 1,000 ML IV PRN (00:34)
[2019-05-29 04:00] VITALS: BP 138/82
[2019-05-29 06:30] LABS: BASOPHILS # (AUTO) 0.1 /CMM (0.0-0.2); BASOPHILS % (AUTO) 1.5 % (0.0-2.0); EOSINOPHILS % (AUTO) 2.2 % (0.0-6.0); HEMATOCRIT 30 % (39-51); HEMOGLOBIN 9.4 g/dL (13.5-17.5); LYMPHOCYTES # (AUTO) 1.3 /CMM (0.8-4.8); LYMPHOCYTES % (AUTO) 16.4 % (20.0-44.0); MEAN CORPUSCULAR HGB CONC 32 g/dl (31.0-36.0); MEAN CORPUSCULAR VOLUME 86 fL (80-96); MONOCYTES # (AUTO) 0.8 /CMM (0.1-1.30); MONOCYTES % (AUTO) 9.5 % (2.0-12.0); NEUTROPHILS # (AUTO) 5.6 /CMM (1.8-8.9); NEUTROPHILS % (AUTO) 70.4 % (43.0-81.0); PLATELET COUNT (AUTO) 318 /CMM (150-450); RED BLOOD CELL COUNT(AUTO) 3.46 MIL/uL (4.5-6.0)
[2019-05-29 06:31] LABS: CALCIUM, SERUM 7.6 mg/dL (8.5-10.1); CREATININE 0.4 mg/dL (0.6-1.3); MAGNESIUM 1.6 mg/dL (1.8-2.4); PHOSPHORUS 2.4 mg/dL (2.5-4.9); POTASSIUM 3.7 mmol/L (3.5-5.1)
--- NOTE | 2019-05-29 07:06 | NUR ---
MS ADEN OPENING RECEIVED PATIENT A/O x4. ON ROOM AIR, NO RESPIRATORY DISTRESS NOTED. CONDOM CATH IN PLACE DRAINING CLEAR YELLOW URINE. HELPED TO COMMODE THIS AM. REPORTS BEING NPO SINCE MIDNIGHT LAST NIGHT, AWARE OF SURGERY @1330. METHADONE 40mg SCHEDULED FOR 9am, CALLED SURGERY, OZZIE RN STATED SHE WILL CALL ANESTHESIOLOGY, WILL F/U. L FA 20G INFUSING NS @100mL/hr. CALL LIGHT WITHIN REACH, PATIENT ABLE TO MAKE NEEDS KNOWN, WILL CONT TO MONITOR
[2019-05-29 08:00] VITALS: BP 166/80
[2019-05-29] MEDS: CARVEDILOL 12.5 MG TABLET PO SCH ×2 (08:43→21:39)
[2019-05-29] MEDS: Magnesium 1GM/D5W 100ML PREMIX 100 ML IV SCH ×4 (08:43→16:42)
[2019-05-29] MEDS: LACTOBACILLUS RHAMNOSUS GG 1 EACH CAP.SPRINK PO SCH ×2 (08:43→16:46)
[2019-05-29] MEDS: DAKINS QUARTER STRENGTH (0.125%) 480 ML BOTTLE TOP SCH (08:44)
[2019-05-29] MEDS: PROSOURCE / PROSTAT (PYXIS) 30 ML UDC GT SCH ×3 (09:00→16:47)
[2019-05-29] MEDS: GABAPENTIN 300 MG CAPSULE PO SCH ×3 (09:00→16:46)
[2019-05-29] MEDS: HYDROGEL DRESSING 90 GM TUBE TP SCH (09:21)
[2019-05-29] MEDS ORDERED: Magnesium 1GM/D5W 100ML PREMIX 100 ML IV SCH (09:28)
[2019-05-29] MEDS: METHADONE HCL 10 MG TABLET PO SCH (09:29)
[2019-05-29] MEDS ORDERED: POTASSIUM PHOSPHATE MM 15 MMOL in IV D5W 250 ML IV SCH (09:30)
[2019-05-29] MEDS ORDERED: hydrALAZINE HCL IV 20 MG VIAL IV PRN (11:00)
[2019-05-29] MEDS: Potassium Phosphate meq 11 MEQ in IV D5W 100 ML IV SCH ×3 (12:37→21:37)
[2019-05-29] MEDS ORDERED: FENTANYL PF 250MCG/5ML AMPUL ONE (13:16)
[2019-05-29] MEDS ORDERED: FAMOTIDINE/PF INJ 20 MG/2 ML VIAL IV ONE (13:16)
[2019-05-29] MEDS ORDERED: MIDAZOLAM HCL 2 MG/2ML VIAL ONE (13:16)
[2019-05-29] MEDS ORDERED: ANESTHESIA TRAY IN PYXIS 1 EA TRAY MC ONE (13:30)
--- NOTE | 2019-05-29 13:38 | NUR ---
PICC INSERTION COMPLETE, RAY TECH @BEDSIDE TO DO STAT CXR, SURGERY TECHS @BEDSIDE TO TAKE PATIENT TO OR. BP 154/62, DENIES CHEST PAIN
--- NOTE | 2019-05-29 13:50 | NUR ---
PICC NOT IN PLACE, REMOVED, PRESSURE DRESSING APPLIED, CATH TIP INTACT, TAKEN TO OR
[2019-05-29] MEDS ORDERED: BUPIVACAINE 0.5 % PF 150 MG/30 ML VIAL ONE (14:00)
[2019-05-29] MEDS ORDERED: LIDOCAINE HCL/PF 1% 30 ML SDV ONE (14:00)
[2019-05-29 16:05] VITALS: BP 132/73
--- NOTE | 2019-05-29 16:05 | NUR ---
PATIENT BACK FROM OR, AWAKE, DROWSY, AROUSES TO NAME AND TOUCH. SEE VITALS DOCUMENTATION. POST OP ORDERS RECEIVED AND CARRIED OUT
[2019-05-29 16:30] VITALS: BP 104/66
--- NOTE | 2019-05-29 19:00 | NUR ---
RN CLOSING PATIENT REMAINS A/OX4, ON ROOM AIR, NO RESP DISTRESS. BLE DEBRIDEMENT DONE TODAY, PICS NOT TAKEN, NEW WOUND ORDERS NOTED. NO BLEEDING NOTED, WRAPPED. D/C PLANNING PER MD FOR TOMORROW. PICC LINE NOT INSERTED, CONSENT IN CHART, ENDORSED TO NOC RN FOR F/U. x2 BAGS POT PHOS NOT GIVEN.
[2019-05-29] MEDS: CEFTRIAXONE 2 G in IV D5W 100 ML IV SCH (19:44)
[2019-05-29 20:00] VITALS: BP 108/63
--- NOTE | 2019-05-29 20:53 | NUR ---
MS RN NOTE DUE TO MULTIPLE COMPLICATIONS THROUGHOUT THE DAY RN FROM AM SHIFT WAS UNABLE TO ADMINISTER THE 2 BAGS OF K PHOS ORDERED. PHARMACY AND MD BERGMAN AWARE. FRANCOISE ALEXANDER WITH BAGS BEING ADMINISTERED DURING FINGERNAIL SCULPTOR. PHARMACY TO RETIME ADMINISTRATION.
[2019-05-29] MEDS ORDERED: POTASSIUM PHOSPHATE MM 7.5 MMOL in IV D5W 100 ML IV SCH (21:00)
--- NOTE | 2019-05-29 21:00 | NUR ---
MS RN NOTE DNP MADALYN BEDSIDE TO PLACE PICC LINE
--- NOTE | 2019-05-29 21:31 | NUR ---
MS RN NOTE PICC LINE PLACED IN RADHA, PENDING XRAY ORDER
[2019-05-29] MEDS: ENOXAPARIN SODIUM 40 MG/0.4 ML DISP.SYRIN SQ SCH (21:37)
[2019-05-30] MEDS: Potassium Phosphate meq 11 MEQ in IV D5W 100 ML IV SCH (00:54)
[2019-05-30 04:00] VITALS: BP 96/64
[2019-05-30] MEDS: HYDROCODONE/APAP 5/325MG 1 EACH TABLET PO PRN (07:02)
--- NOTE | 2019-05-30 07:33 | NUR ---
MS RN NOTES PT IN BED A/OX3. NO SIGNS OF PAIN AND DISCOMFORT NOTED AT THIS TIME. RIGHT IV SITE IS PATENT AND FLUSHED WELL. MIDLINE X RAY RESULT PENDING. CALL LIGHT WITHIN REACH, BED AT LOWEST POSITION AND LOCKED. WILL CONTINUE TO MONITOR.
[2019-05-30 08:00] VITALS: BP 138/68
[2019-05-30 08:21] LABS: BASOPHILS # (AUTO) 0.2 /CMM (0.0-0.2); BASOPHILS % (AUTO) 1.5 % (0.0-2.0); EOSINOPHILS % (AUTO) 1.4 % (0.0-6.0); HEMATOCRIT 32 % (39-51); HEMOGLOBIN 9.9 g/dL (13.5-17.5); LYMPHOCYTES # (AUTO) 1.2 /CMM (0.8-4.8); MEAN CORPUSCULAR HGB CONC 32 g/dl (31.0-36.0); MEAN CORPUSCULAR VOLUME 87 fL (80-96); MONOCYTES # (AUTO) 0.7 /CMM (0.1-1.30); MONOCYTES % (AUTO) 6.6 % (2.0-12.0); NEUTROPHILS # (AUTO) 7.9 /CMM (1.8-8.9); NEUTROPHILS % (AUTO) 78.5 % (43.0-81.0); PLATELET COUNT (AUTO) 409 /CMM (150-450); RED BLOOD CELL COUNT(AUTO) 3.62 MIL/uL (4.5-6.0); WHITE BLOOD COUNT (AUTO) 10.1 K/uL (4.3-11.0)
[2019-05-30 08:33] LABS: CALCIUM, SERUM 8.1 mg/dL (8.5-10.1); CREATININE 0.5 mg/dL (0.6-1.3); MAGNESIUM 2.2 mg/dL (1.8-2.4)
[2019-05-30] MEDS: METHADONE HCL 10 MG TABLET PO SCH (09:37)
[2019-05-30 09:38] VITALS: BP 138/68
[2019-05-30] MEDS: LACTOBACILLUS RHAMNOSUS GG 1 EACH CAP.SPRINK PO SCH (09:38)
[2019-05-30] MEDS: GABAPENTIN 300 MG CAPSULE PO SCH ×2 (09:38→14:18)
[2019-05-30] MEDS: CARVEDILOL 12.5 MG TABLET PO SCH (09:38)
[2019-05-30] MEDS: DAKINS QUARTER STRENGTH (0.125%) 480 ML BOTTLE TOP SCH (09:40)
[2019-05-30] MEDS: HYDROGEL DRESSING 90 GM TUBE TP SCH (09:42)
[2019-05-30] MEDS ORDERED: OXYC-132 PO (10:31)
[2019-05-30] MEDS ORDERED: CEFT2FRO2 IV (10:31)
[2019-05-30] MEDS ORDERED: CARV12.52 PO (10:31)
[2019-05-30] MEDS ORDERED: GABA300C PO (10:31)
--- NOTE | 2019-05-30 14:16 | NUR ---
MS RN NOTES HAD A PHONE CALL WITH DR ENGLE ABOUT USING PICC LINE AND THE X RAY RESULTS. IS AWARE AND OK TO USE THE LINE.
--- NOTE | 2019-05-30 15:10 | NUR ---
MS RN NOTES PT REFUSED NEURONTIN RETURNED TO [facility].
== END 2019-05-30 15:55 | DRG 853 ==
LOC: ER 16:57 → TELE1 19:36 → MEDSG1 05-24 09:57
PROVIDERS: ADMIT Hospitalist; ATTEND Hospitalist
PROC: 30233N1 Transfusion of Nonautologous Red Blood Cells into Peripheral Vein, Percutaneous Approach (ICD-10-PCS; principal; 2019-05-22)
PROC: 0LBT0ZZ Excision of Left Ankle Tendon, Open Approach (ICD-10-PCS; 2019-05-29)
PROC: 0LBV0ZZ Excision of Right Foot Tendon, Open Approach (ICD-10-PCS; 2019-05-29)
PROC: B548ZZA Ultrasonography of Superior Vena Cava, Guidance (ICD-10-PCS; 2019-05-29)
PROC: 02HV33Z Insertion of Infusion Device into Superior Vena Cava, Percutaneous Approach (ICD-10-PCS; 2019-05-29)
PROC: 0JBR0ZZ Excision of Left Foot Subcutaneous Tissue and Fascia, Open Approach (ICD-10-PCS; 2019-05-29)
DX: A41.9 Sepsis, unspecified organism (principal); E43 Unspecified severe protein-calorie malnutrition; G93.41 Metabolic encephalopathy; J90 Pleural effusion, not elsewhere classified; L03.115 Cellulitis of right lower limb; L03.116 Cellulitis of left lower limb; R64 Cachexia; Z68.1 Body mass index [BMI] 19.9 or less, adult; F11.20 Opioid dependence, uncomplicated; L97.328 Non-pressure chronic ulcer of left ankle with other specified severity; L97.418 Non-pressure chronic ulcer of right heel and midfoot with other specified severity; L97.528 Non-pressure chronic ulcer of other part of left foot with other specified severity; E83.39 Other disorders of phosphorus metabolism; E83.42 Hypomagnesemia; E88.09 Other disorders of plasma-protein metabolism, not elsewhere classified; E86.0 Dehydration; L89.890 Pressure ulcer of other site, unstageable; I71.4 Abdominal aortic aneurysm, without rupture; F17.210 Nicotine dependence, cigarettes, uncomplicated; E87.6 Hypokalemia; G89.4 Chronic pain syndrome; D63.8 Anemia in other chronic diseases classified elsewhere; D47.3 Essential (hemorrhagic) thrombocythemia; D50.9 Iron deficiency anemia, unspecified; Z91.19 Patient's noncompliance with other medical treatment and regimen; I73.9 Peripheral vascular disease, unspecified; I35.8 Other nonrheumatic aortic valve disorders; B95.0 Streptococcus, group A, as the cause of diseases classified elsewhere; M85.80 Other specified disorders of bone density and structure, unspecified site; R65.20 Severe sepsis without septic shock; Z87.01 Personal history of pneumonia (recurrent)
CPT/HCPCS: 36415; 71045-TC; 73620-TC; 75635-TC; 76770-TC; 80048-TC; 80053-TC; 80061-TC; 80076-TC; 80202-TC; 81000-TC; 82140-TC; 82550-TC; 82728-TC; 83540-TC; 83605-TC; 83735-TC; 84100-TC; 84484-TC; 85025-TC; 85730-TC; 86850-TC; 86921-TC; 87040-TC; 87070-TC; 87081-TC; 87086-TC; 87186-TC; 92526; 92611-TC; 93307-TC; 93970-TC; 97110-TC; 97112-TC; 97116-TC; 97530-TC; A4349; A6248; A6253; A6403; C1751; G0378; J0690; J0696; J1650; J2250; J2405; J2543; J2704; J2765; J2916; J3010; J3370; J3475; J3480; J3490; J7030; J7040; J7050; J7060; P9016-BL; Q9967

== ENCOUNTER 2019-05-31 11:57 | Inpatient (IN) | payer MEDICARE, OTHER ==
[~2019-05-31] VITALS: Ht 165.1 cm; Wt 51.7 kg
[~2019-05-31 11:57] MED LIST changes: +CARV12.52 PO; -CEFT1VIA15 IV; +CEFT2FRO2 IV; -DOXY100T2 PO; +GABA300C PO; -MIRT15TA PO; +OXYC-132 PO
--- NOTE | 2019-05-31 12:14 | NUR ---
PT BROUGHT IN FROM SNF FOR BILATERAL FEET R/O INFECTION ON ANTIBIOTICS PT OF MD FELIX
[2019-05-31] MEDS ORDERED: METHADONE HCL (40MG) 40 MG TABLET.SOL PO ONE (12:30)
--- NOTE | 2019-05-31 13:38 | NUR ---
CALLED [employer]. PRODUCT MARKETING DIRECTOR WAS PAGED.
--- NOTE | 2019-05-31 13:46 | NUR ---
CALLED [facility] FOR MS BED
--- NOTE | 2019-05-31 14:13 | NUR ---
FOLLOWED UP WITH [facility]. STILL AWAITING BED
--- NOTE | 2019-05-31 14:14 | NUR ---
315-2 MS BED GIVEN
--- NOTE | 2019-05-31 14:29 | NUR ---
PT STATES HE DOES NOT WANT TO BE ADMITTED. WHEN ASKED WHERE ARE YOU GOING TO GO PT STATED TO HIS BROTHERS HOUSE BROTHER'S TELEPHONE NUMBER GIVEN CALLING BROTHER TO PICK PT UP. PT WAS EXPALINED THAT ER CANNOT GIVE MEADONE BUT FLOORS CAN STILL PT INSISTED HE DOES NOT WANT TO STAY.
--- NOTE | 2019-05-31 14:33 | NUR ---
CALLED PT'S BROTHER, KEN [phone]. PT INFORMED ME THAT HE WAS NOT ABLE TO CARE FOR THE PT.
--- NOTE | 2019-05-31 14:40 | NUR ---
M/S RN NOTES PATIENT ADMITTED WITH NO RESPIRATORY DISTRESS, ALERT AND ORIENTED X4. PATIENT VERBALLY ABUSIVE TO STAFF. PATIENT WANTS TO GO AMA. SPOKE TO DR. GUTIERREZ ABOUT PATIENT'S DECISION.
--- NOTE | 2019-05-31 14:50 | NUR ---
M/S RN NOTES PATIENT REFUSED FOR SKIN ASSESSMENT AND PHOTOS TO BE TAKEN. EXPLAINED TO PATIENT RISKS AND BENEFITS BUT PATIENT STILL REFUSED.
[2019-05-31] MEDS ORDERED: DEXTROSE ISO IV SCH (15:30)
[2019-05-31] MEDS ORDERED: ONDANSETRON HCL/PF 4 MG/2 ML VIAL IVP PRN (15:30)
[2019-05-31] MEDS ORDERED: METHADONE HCL (40MG) 40 MG TABLET.SOL PO SCH (15:30)
[2019-05-31] MEDS ORDERED: ZOLPIDEM TARTRATE 5 MG TABLET PO PRN (15:30)
[2019-05-31] MEDS ORDERED: oxyCODONE/APAP (5/325 MG) 1 UDTAB TABLET PO PRN (15:30)
[2019-05-31] MEDS ORDERED: [UNRECOGNIZED DRUG - OTHER] IV SCH (15:30)
[2019-05-31] MEDS ORDERED: HYDROCODONE/APAP 5/325MG 1 EACH TABLET PO PRN (15:30)
[2019-05-31] MEDS ORDERED: CEFTRIAXONE NA IV SCH (15:30)
[2019-05-31] MEDS ORDERED: MAG HYDROX/AL HYDROX/SIMETH 30 ML UDC PO PRN (15:30)
[2019-05-31] MEDS ORDERED: Z GUARD REMEDY 2 OZ OINT TP PRN (15:30)
[2019-05-31] MEDS ORDERED: ACETAMINOPHEN 325 MG TABLET PO PRN (15:30)
[2019-05-31 16:00] VITALS: BP 167/87
[2019-05-31] MEDS ORDERED: METHADONE HCL 10 MG TABLET PO ONE (16:00)
--- NOTE | 2019-05-31 16:29 | NUR ---
M/S RN NOTES PATIENT IS MORE CALM, EXPLAINED PLAN OF CARE TO THE PATIENT AND THE REASON WHY HE'S HOSPITALIZED. EXPLAINED THE RISKS AND BENEFITS AND PATIENT AGREED TO STAY.
[2019-05-31] MEDS: GABAPENTIN 300 MG CAPSULE PO SCH (17:00)
[2019-05-31] MEDS: CEFTRIAXONE 2 G in IV D5W 100 ML IV SCH (17:15)
--- NOTE | 2019-05-31 17:25 | NUR ---
M/S RN NOTES PATIENT AWAKE IN BED. PATIENT MORE COOPERATIVE. NO RESPIRATORY DISTRESS, PATIENT IN NO C/O PAIN AT THIS TIME. PICC LINE ON THE RADHA, INTACT AND PATENT. PATIENT'S NEEDS ATTENDED. BED ON LOWEST LOCKED POSITION, CALL LIGHT WITHIN REACH. WILL ENDORSE TO ONCOMING NURSE.
[2019-05-31 20:00] VITALS: BP 140/76
--- NOTE | 2019-05-31 20:00 | NUR ---
MS RN NOTES RECEIVED PATIENT AWAKE IN BED WITH NO DISTRESS NOTED. CALL LIGHT WITHIN REACH. RADHA PICC LINE INTACT AND PATENT. NO C/O PAIN OR DISCOMFORT. ENCOURAGED USE OF CALL LIGHT FOR ASSISTANCE AND VERBALIZED GOOD UNDERSTANDING. ROOM FREE OF CLUTTER AND BELONGINGS KEPT NEAR BEDSIDE. WILL CONTINUE TO MONITOR.
[2019-05-31] MEDS: CARVEDILOL 12.5 MG TABLET PO SCH (20:11)
[2019-06-01 06:26] LABS: BASOPHILS # (AUTO) 0.1 /CMM (0.0-0.2); BASOPHILS % (AUTO) 1.9 % (0.0-2.0); EOSINOPHILS % (AUTO) 1.1 % (0.0-6.0); HEMATOCRIT 25 % (39-51); HEMOGLOBIN 8.3 g/dL (13.5-17.5); LYMPHOCYTES # (AUTO) 1.3 /CMM (0.8-4.8); LYMPHOCYTES % (AUTO) 18.8 % (20.0-44.0); MEAN CORPUSCULAR HGB CONC 33 g/dl (31.0-36.0); MEAN CORPUSCULAR VOLUME 86 fL (80-96); MONOCYTES # (AUTO) 0.8 /CMM (0.1-1.30); MONOCYTES % (AUTO) 11.7 % (2.0-12.0); NEUTROPHILS # (AUTO) 4.7 /CMM (1.8-8.9); NEUTROPHILS % (AUTO) 66.5 % (43.0-81.0); PLATELET COUNT (AUTO) 355 /CMM (150-450); RED BLOOD CELL COUNT(AUTO) 2.96 MIL/uL (4.5-6.0)
--- NOTE | 2019-06-01 06:32 | NUR ---
MS RN NOTES RECEIVED PATIENT AWAKE IN BED WITH NO DISTRESS NOTED. CALL LIGHT WITHIN REACH. ALL DUE MEDS GIVEN ORDERED WITH NO ASE NOTED. PICC LINE INTACT AND PATENT. NO C/O PAIN OR DISCOMFORT. PATIENT CALM AND COMPLIANT DURING SHIFT WITH NO BEHAVIORAL PROBLEMS NOTED. ROOM FREE OF CLUTTER AND BELONGINGS KEPT NEAR BEDSIDE. WILL CONTINUE TO MONITOR.
[2019-06-01 06:40] LABS: CALCIUM, SERUM 7.9 mg/dL (8.5-10.1); CREATININE 0.5 mg/dL (0.6-1.3); MAGNESIUM 1.5 mg/dL (1.8-2.4); PHOSPHORUS 2.4 mg/dL (2.5-4.9); POTASSIUM 3.3 mmol/L (3.5-5.1)
--- NOTE | 2019-06-01 07:54 | NUR ---
M/S RN NOTES PATIENT RESTING, LYING IN BED. NO RESPIRATORY DISTRESS, NO C/O PAIN AT THIS TIME. SKIN WARM TO TOUCH. PICC LINE ON THE RADHA INTACT AND PATENT. PATIENT'S NEEDS ATTENDED. BED ON LOWEST LOCKED POSITION, CALL LIGHT WITHIN REACH. WILL CONTINUE TO MONITOR.
[2019-06-01 08:00] VITALS: BP 142/76
[2019-06-01] MEDS: GABAPENTIN 300 MG CAPSULE PO SCH ×3 (09:00→17:00)
[2019-06-01] MEDS: CARVEDILOL 12.5 MG TABLET PO SCH ×2 (09:16→21:51)
[2019-06-01] MEDS: METHADONE HCL 10 MG TABLET PO SCH (09:17)
[2019-06-01] MEDS ORDERED: POTASSIUM CHLORIDE 20 MEQ TAB.PRT.SR PO SCH (09:30)
[2019-06-01] MEDS: Magnesium 1GM/D5W 100ML PREMIX 100 ML IV SCH ×2 (10:06→11:08)
[2019-06-01] MEDS ORDERED: K PHOS NEUTRAL 250 MG TABLET PO ONE (11:00)
[2019-06-01] MEDS: CEFTRIAXONE 2 G in IV D5W 100 ML IV SCH (15:33)
[2019-06-01 16:02] VITALS: BP 151/80
[2019-06-01] MEDS: MAGNESIUM HYDROXIDE 30 ML UDC PO PRN ×2 (16:36→21:51)
--- NOTE | 2019-06-01 18:54 | NUR ---
M/S RN NOTES PATIENT AWAKE, LYING IN BED. NO RESPIRATORY DISTRESS, NO C/O PAIN AT THIS. SKIN WARM TO TOUCH. PICC LINE INTACT AND PATENT. PATIENT'S NEEDS ATTENDED. BED ON LOWEST LOCKED POSITION, CALL LIGHT WITHIN REACH. WILL ENDORSE TO ONCOMING NURSE.
[2019-06-01 20:00] VITALS: BP 143/77
--- NOTE | 2019-06-01 20:00 | NUR ---
MS RN NOTES RECEIVED PATIENT AWAKE IN BED WITH NO DISTRESS NOTED. CALL LIGHT WITHIN REACH. NO C/O PAIN OR DISCOMFORT. PICC LINE INTACT AND PATENT. ENCOURAGED USE OF CALL LIGHT FOR ASSISTANCE AND VERBALIZED GOOD UNDERSTANDING. ROOM FREE OF CLUTTER AND BELONGINGS KEPT NEAR PATIENT. WILL CONTINUE TO MONITOR.
[2019-06-01] MEDS: HEPARIN SODIUM, PORCINE 5000 UNITS/1 ML VIAL SQ SCH (21:50)
--- NOTE | 2019-06-02 06:37 | NUR ---
MS RN NOTES PATIENT ASLEEP IN BED WITH NO DISTRESS NOTED. CALL LIGHT WITHIN REACH. ALL DUE MEDS GIVEN ORDERED WITH NO ASE NOTED. PICC LINE INTACT AND PATENT. PATIENT WITH BLE WOUNDS AND CONTINUES TO REFUSE ASSESSMENT DESPITE EXPLANATION OF RISKS AND BENEFITS X3. DRESSING REMAIN CLEAN, DRY, INTACT. NO C/O PAIN OR DISCOMFORT. ROOM FREE OF CLUTTER AND BELONGINGS WITHIN REACH. WILL ENDORSE TO ONCOMING SHIFT.
[2019-06-02 07:46] LABS: CALCIUM, SERUM 8.1 mg/dL (8.5-10.1); CREATININE 0.5 mg/dL (0.6-1.3); MAGNESIUM 2.2 mg/dL (1.8-2.4); PHOSPHORUS 2.6 mg/dL (2.5-4.9)
[2019-06-02 08:00] VITALS: BP 143/76
--- NOTE | 2019-06-02 08:00 | NUR ---
MS1/RN AM SHIFT INITIAL NOTES RECEIVED PT A/O X 4, PT COMPLAINT OF GENERALIZED PAIN RATED 9/10. ON ROOM AIR SATURATING WELL, RESPIRATIONS EVEN & UNLABORED, LUNG SOUNDS CLEAR. PICC LINE ON TKO, PATENT WITH NO S/S OF INFECTION. FEET DRESSING, INTACT AND CLEAN. SCHEDULED AM MEDS TO BE GIVEN. CL WITHIN REACHED AND SAFETY MAINTAINED. ON GOING MONITORING.
[2019-06-02] MEDS: GABAPENTIN 300 MG CAPSULE PO SCH ×3 (09:00→16:12)
[2019-06-02] MEDS: CARVEDILOL 12.5 MG TABLET PO SCH ×2 (09:01→21:11)
[2019-06-02] MEDS: METHADONE HCL 10 MG TABLET PO SCH (09:02)
[2019-06-02] MEDS: HEPARIN SODIUM, PORCINE 5000 UNITS/1 ML VIAL SQ SCH ×2 (09:04→21:11)
[2019-06-02] MEDS ORDERED: METH10TA2 PO (10:21)
--- NOTE | 2019-06-02 10:30 | NUR ---
ELVIA/PORCELAIN WAXER SHOES PT SEEN & EXAMINED BY DR. CRUMP, WITH VERBAL ORDER RECEIVED TO PLACE SURGICAL SHOES ON PT'S FEET. CALLED [facility] TO OBTAIN SHOES, AWAITING FOR SHOES. Addendum: 06/02/19 at 1051 by PIA HAHN RN ADDENDUM: SURGICAL SHOW PLACED ON PT'S FEET.
[2019-06-02 16:00] VITALS: BP 132/71
[2019-06-02] MEDS: CEFTRIAXONE 2 G in IV D5W 100 ML IV SCH (16:12)
--- NOTE | 2019-06-02 17:00 | NUR ---
MS/ RN NO CHANGE OF CONDITION , PM CARE PROVIDED.
--- NOTE | 2019-06-02 19:12 | NUR ---
MS/ RN AM SHIFT END NOTES PATIENT RECEIVED BY PM SHIFT . NO CHANGE IN PATIENT CONDITION. PATIENT REMAIN IN SABLE CONDITION. PATIENT WAS ON THE BED WATCHING TV DURING CHANGE OF SHIFT. NO SIGN OF DISTRESS, PT IS INDEPENDENT.ALL CURRENT NEEDS HAVE BEEN MET. BED LOW AND LOCKED AND CALL LIGHT WITH IN REACH.
--- NOTE | 2019-06-02 19:49 | NUR ---
MS RN NOTE RECEIVED PT IN STABLE CONDITION A/O X4, CURRENTLY IN BED WATCHING TV. NO SIGNS OF SOB OR DISTRESS, PT STATES THAT PAIN IS TOLERABLE RIGHT NOW. RADHA PICC LINE IN PLACE WITH IVF INFUSING. ALL CURRENT NEEDS ATTENDED TO. BED LOW, LOCKED, UPPER RAILS UP, AND CALL LIGHT WITHIN REACH. WILL CONT. TO MONITOR.
[2019-06-02 20:33] VITALS: BP 143/76
--- NOTE | 2019-06-03 06:19 | NUR ---
MS RN NOTE PT REMAINS IN STABLE CONDITION A/O X4, CURRENTLY IN BED RESTING. NO SIGNS OF SOB OR DISTRESS, NO INDICATIONS OF PAIN OR N/V. RADHA PICC LINE IN PLACE WITH IVF INFUSING FOR TKO. ALL CURRENT NEEDS ATTENDED TO. BED LOW, LOCKED, UPPER RAILS UP, AND CALL LIGHT WITHIN REACH. WILL CONT. TO MONITOR AND ENDORSE TO NEXT SHIFT FOR CASSIE.
[2019-06-03 08:00] VITALS: BP 117/85
[2019-06-03 08:20] VITALS: BP 117/55
[2019-06-03] MEDS: CARVEDILOL 12.5 MG TABLET PO SCH ×2 (08:44→20:26)
[2019-06-03] MEDS: METHADONE HCL 10 MG TABLET PO SCH (08:44)
[2019-06-03] MEDS: GABAPENTIN 300 MG CAPSULE PO SCH ×3 (08:45→16:23)
[2019-06-03] MEDS: HEPARIN SODIUM, PORCINE 5000 UNITS/1 ML VIAL SQ SCH ×2 (08:46→20:37)
[2019-06-03 16:00] VITALS: BP 136/82
[2019-06-03] MEDS: CEFTRIAXONE 2 G in IV D5W 100 ML IV SCH (16:24)
[2019-06-03 17:15] VITALS: BP 136/52
--- NOTE | 2019-06-03 19:17 | NUR ---
Handoff to ADEN Weeks. Krunal Nj RN
[2019-06-03 20:00] VITALS: BP 129/81
[2019-06-03] MEDS: MAGNESIUM HYDROXIDE 30 ML UDC PO PRN (20:25)
--- NOTE | 2019-06-04 07:32 | NUR ---
MS RN OPENING NOTE PATIENT IN BED RESTING COMFORTABLY. PATIENT IN NO ACUTE DISTRESS. NO SOB NOTED. PATIENT BREATHING IS EVEN AND UNLABORED. NO FACIAL GRIMACING NOTED. SAFETY PRECAUTIONS IN PLACE. PATIENT BED IS LOCKED AND IN LOWEST POSITION. CALL LIGHT WITHIN REACH. WILL CONTINUE TO MONITOR.
[2019-06-04 08:00] VITALS: BP 119/56
[2019-06-04] MEDS: CARVEDILOL 12.5 MG TABLET PO SCH (08:42)
[2019-06-04] MEDS: METHADONE HCL 10 MG TABLET PO SCH (08:44)
[2019-06-04] MEDS: HEPARIN SODIUM, PORCINE 5000 UNITS/1 ML VIAL SQ SCH (08:45)
[2019-06-04] MEDS: GABAPENTIN 300 MG CAPSULE PO SCH ×3 (08:50→16:14)
[2019-06-04] MEDS: CEFTRIAXONE 2 G in IV D5W 100 ML IV SCH (15:56)
[2019-06-04 16:00] VITALS: BP 149/90
--- NOTE | 2019-06-04 17:20 | NUR ---
AMA NOTE PATIENT WAS MEDICALLY STABLE FOR DISCHARGE TO [facility]. PATIENT IS ALERT AND ORIENTED X4. PATIENT BREATHING WAS EVEN AND UNLABORED. WITH NO SOB NOTED. PATIENT REFUSED TO GO SNF. PATIENT STATED " I AM NOT GOING ALL THE WAY TO [place], I DO NOT WANT TO STAY IN A RETIREMENT. I CAN TAKE CARE OF MYSELF AT MY HOME THAT I SHARE WITH MY BROTHER AND IN A COUPLE WEEKS ILL BE FINE AND BETTER". INQUIRED PATIENT ABOUT ANYONE TO TAKE CARE OF HIMSELF, AND HE STATED " I CAN DO IT ALL ON MY OWN DONT WORRY ABOUT IT, I DONT NEED MY BROTHERS PERMISSION I DONT NEED ANYONES PERMISSION. GET ME OUT OF THIS HOSPITAL". INFORMED PATIENT THAT CONTINUED TREATMENT WAS NEEDED FOR CONTINUITY OF CARE AT SNF. PATIENT REFUSED AND GOT AGGRAVATED AND STARTED TO YELL AT NURSING STAFF. PATIENT ATTEMPTED TO REMOVE PICC LINE. PATIENT STATED " FUCK YOU I CAN LEAVE I WILL SIGN AMA, YOU GUYS SUCK. YOU CANT MAKE ME DO ANYTHING". INFORMED PATIENT OF IMPORTANCE OF STAYING AND GOING TO SNF TO CONTINUE TREATMENT. EXPLAINED TO PATIENT SAFETY IMPORTANCE AND EDUCATION OF RISKS VS BENEFITS OF CONTINUITY OF CARE. PATIENT CONTINUED TO REFUSE AND YELL AT STAFF. OUTFITTER CABIN BLAYNE AND SUNNI HAVE SPOKEN TO THE PATIENT AND EXPLAINED RISKS VS BENEFITS AND EDUCATION OF TREATMENT. PATIENT CONTINUED TO REFUSE. I EDUCATED PATIENT OF SAFETY AND CHARGE NURSE JOSHUA ALSO SPOKE WITH THE PATIENT REGARDING TO STAY AT HOSPITAL AND CONTINUE CARE HERE AND THEN AT SNF >3 TIMES. PATIENT STATED " GET ME THE HELL AWAY, DONT WORRY ABOUT WHAT I DO AND MY CHOICES DUMBASSES". PATIENT SIGNED AMA. PATIENT REFUSED TO SIGN BELONGINGS LIST AND SKIN ASSESSMENT. PATIENT REFUSED TO BE PROVIDED WITH ANY DISCHARGE PAPERWORK. I REMOVED ID BAND AND I REMOVED PICC LINE. ENFORCED PRESSURE DRESSING TO ENSURE NO BLEEDING. PATIENT WITH NO SIGNS OF BLEEDING OR SWELLING, WITH PRESSURE DRESSING IN PLACE. PATIENT GIVEN CLOTHES, AND A WALKER. MEDICAL RECEPTIONIST SUNNI FOLLOWED UP WITH PATIENT OUTSIDE WELL TO TALK AND EXPLAIN IMPORTANCE ONCE MORE. PATIENT REFUSED TO COMPLY. CALLED BROTHER KEN FLYNN TO INFORM OF AMA. KEN STATED " HE ALWAYS DOES THIS. IM SO SORRY YOU HAD TO GO THROUGH THIS. I CANT TAKE CARE OF HIM AT HOME AND HE KNOWS THAT. LET ME GUESS WHEN YOU TOLD HIM HE WAS GOING TO A RETIREMENT. HE YELLED AT YOU GUYS. HE IS KNOWN TO DO THAT. IM SORRY." AWARE. NURSING INSTRUMENT ASSEMBLY SUPERVISOR MADE AWARE. CHARGE NURSE MADE AWARE.
== END 2019-06-04 17:40 | disposition left against medical advice (07) | DRG 720 ==
LOC: ER 11:58 → MED 14:21
PROVIDERS: ADMIT Hospitalist; ATTEND Hospitalist
DX: A41.9 Sepsis, unspecified organism (principal); I33.0 Acute and subacute infective endocarditis; E43 Unspecified severe protein-calorie malnutrition; G93.41 Metabolic encephalopathy; I73.9 Peripheral vascular disease, unspecified; D63.8 Anemia in other chronic diseases classified elsewhere; F17.210 Nicotine dependence, cigarettes, uncomplicated; Z68.1 Body mass index [BMI] 19.9 or less, adult; E88.09 Other disorders of plasma-protein metabolism, not elsewhere classified; L97.428 Non-pressure chronic ulcer of left heel and midfoot with other specified severity; L97.418 Non-pressure chronic ulcer of right heel and midfoot with other specified severity; L97.328 Non-pressure chronic ulcer of left ankle with other specified severity; L97.318 Non-pressure chronic ulcer of right ankle with other specified severity; L97.518 Non-pressure chronic ulcer of other part of right foot with other specified severity; F11.20 Opioid dependence, uncomplicated
CPT/HCPCS: 36415; 80048-TC; 83735-TC; 84100-TC; 85025-TC; 87081-TC; A6253; A6403; G0378; J0696; J1644; J3475; J7030; J7060